=== PATIENT | female | born 1990 | race Caucasian/White ===

== ENCOUNTER 2019-05-13 23:14 | Observation (INO) | payer OTHER, SELFPAY ==
--- NOTE | ~2019-05-13 | XR_ITS ---
EXAMINATION: XR chest 2V DATE: 05/14/2019 00:29 INDICATION: Weakness. TECHNIQUE: Frontal and lateral views of the chest were obtained. COMPARISON: Chest 2 views 08/03/2018 FINDINGS: The chest demonstrates clear lungs without pneumonia, pleural effusion, or pneumothorax. Th e heart size is normal. Surgical clips in the right upper quadrant are likely from cholecystectomy. IMPRESSION: 1. No acute cardiopulmonary disease. Reviewed, dictated and finalized at location A. PING PROCESSOR
--- NOTE | ~2019-05-13 | CT_ITS ---
EXAMINATION: CT brain wo con DATE: 05/14/2019 00:29 INDICATION: Syncope. Head injury. TECHNIQUE: Computed tomography (CT) of the head was performed without intravenous contrast. The mA wa s adjusted according to patient size. Iterative reconstruction technique was employed. The dose-lengt h product was 605.33 mGy-cm. COMPARISON: Head CT 12/03/2016 FINDINGS: There is no intracranial hemorrhage, acute infarction, or abnormal intracranial mass lesion . The ventricles are normal in size. There is moderate mucosal thickening in left sphenoid sinus. The mastoid air cells are normal. The orbits are normal. IMPRESSION: 1. Normal brain. Reviewed, dictated and finalized at location A. NICAL ACCOUNT MANAGER IMPRESSION: 1. Normal brain.
[2019-05-13 23:15] VITALS: BP 80/46; PULSE 106; RESP 20; TEMP 36.8; O2SAT 100
--- NOTE | 2019-05-13 23:26 | ECG_ITS ---
Measurements Intervals [place] Rate: 80 P: 48 WA: 151 QRS: 51 QRSD: 97 T: 53 QT: 402 QTc: 466 Interpretive Statements SINUS RHYTHM NONSPECIFIC T-WAVE ABNORMALITY- LATERAL LEADS BASELINE ARTIFACT- I, III, AVR, AVL, AVF BORDERLINE ECG Electronically Signed On 05-14-2019 7:15:18 LEAD SUSTAINABILITY SPECIALIST by Navdeep Colmenares D.O.
[2019-05-13] MEDS: SODIUM CHLORIDE 0.9% IV 1,000 ML 999 ML (23:27)
[2019-05-13 23:38] VITALS: BP 72/50; PULSE 76; RESP 18
[2019-05-13 23:45] VITALS: PULSE 84
[2019-05-13 23:56] LABS: Basophils Absolute Auto 0.05 K/mm3 (0.00-0.10); Basophils Percent Auto 0.5 % (0.0-1.0); Eosinophils Absolute Auto 0.13 K/mm3 (0.02-0.50); Eosinophils Percent Auto 1.3 % (1.0-6.0); Hematocrit 34.8 % (35.0-49.0); Hemoglobin 12.3 g/dL (12.0-15.0); Immature Granulocyte Absolute 0.03 K/mm3 (0.00-0.00); Immature Granulocyte Percent A 0.3 % (0.0-0.0); Lymphocytes Absolute Auto 3.18 K/mm3 (1.10-4.50); Lymphocytes Percent Auto 30.9 % (18.0-42.0); Mean Corpuscular HGB Conc 35.3 g/dL (32.0-36.0); Mean Corpuscular Hemoglobin 33.7 pg (27.0-31.0); Mean Corpuscular Volume 95.3 fL (78.0-102.0); Mean Platelet Volume 9.3 fl (9.2-11.8); Monocytes Percent Auto 10.7 % (2.0-11.0); Neutrophils Absolute Auto 5.8 K/mm3 (1.7-7.2); Neutrophils Percent Auto 56.3 % (50.0-70.0); Platelet Count Result 255 K/mm3 (150-420); Red Blood Count 3.65 M/mm3 (4.20-5.40); Red Cell Distribution Width 11.7 % (11.6-14.4); White Blood Count 10.3 K/mm3 (4.8-10.8)
[2019-05-13] MEDS: SODIUM CHLORIDE 0.9% IV 1,000 ML 999 ML IV CONT (23:56)
[2019-05-14] VITALS: BP 84/40; PULSE 80; RESP 18; O2SAT 100
[2019-05-14 00:10] LABS: INR 1.1; Partial Thromboplastin Time 24.2 SEC (22.3-31.6); Prothrombin Time 11.7 Seconds (9.64-11.0)
[2019-05-14 00:13] LABS: Alanine Aminotransferase 18 U/L (14-59); Albumin Level 3.5 g/dL (3.4-5.0); Alkaline Phosphatase 69 U/L (46-116); Anion Gap 11.8 mmol/L (7-16); Aspartate Amino Transferase 14 U/L (15-37); Bilirubin,Total 0.4 mg/dL (0.00-1.00); Blood Urea Nitrogen 12 mg/dL (7-18); Calcium 8.4 mg/dL (8.5-10.1); Carbon Dioxide 31 mmol/L (21-32); Chloride 101 mmol/L (98-108); Estimated CRCL calculation 46 ml/min; Estimated Glomerular Filt Rate 35; Glucose 98 mg/dL (70-99); Osmolality Calculated 291 mOsm/kg (285-295); Potassium 2.8 mmol/L (3.5-5.1); Sodium 141 mmol/L (136-145)
[2019-05-14 00:14] LABS: CRP < 0.2 mg/dL (0.0-0.9)
[2019-05-14 00:16] LABS: Lactic Acid 1.7 mmol/L (0.4-2.0)
[2019-05-14] MEDS: KCL 40 MEQ/0.9% SOD CHL 1,000 ML 100 ML IV CONT (00:28)
[2019-05-14 00:31] VITALS: BP 94/52; PULSE 86; RESP 14; O2SAT 100
--- NOTE | 2019-05-14 00:34 | PC.NURSE ---
Patient sitting up in bed eating chips and drinking dark soda, water or other/better hydration options offered and declined with patient stating she only drinks soda. IVF bolus continue, NS w/ 40 kcl started @ 100 ml/hr for K 2.8. Patient reports feeling better. Will continue to monitor
--- NOTE | 2019-05-14 00:42 | ED.SYNCOPE ---
HPI - Syncope General Chief Complaint: Syncope Stated Complaint: Snycope Source: patient and family Mode of arrival: wheelchair Limitations: no limitations History of Present Illness HPI narrative: This 29-year-old female presents emergency the episode of syncope patient passed out earlier felt faint and and she fell she hit her head on the whole left occipital area, also was nausea with episodes of vomiting. Patient was recently diagnosed with influenza at her primary care physician's office and was prescribed Tamiflu and Zofran for nausea and vomiting. Patient apparently fainted and was out for unknown period of time with no bowel or bladder dysfunction no seizure activity no tongue biting. The patient has not been eating or drinking well and has been only drinking soft drinks. Currently there is no shortness of breath no fever chills no chest pain no diarrhea constipation. Patient initially presented with a blood pressure systolic in the 80s, and feels fine when she is just lying flat. MD complaint: loss of consciousness and felt faint Onset (ago): hour(s) -: second(s) Prodromal symptoms: nausea/vomiting Witnessed: Yes - by Bystander Context: at rest and recent illness Injuries sustained associated with event: head and chest Current symptoms: lightheaded and nausea Related Data Home Medications Medication Instructions Recorded Confirmed amitriptyline 50 mg PO HS 04/10/19 05/13/19 lisinopril 10 mg PO DAILY 04/10/19 05/13/19 trazodone 50 mg PO HS PRN 04/10/19 05/13/19 venlafaxine [Effexor XR] 37.5 mg PO DAILY 04/10/19 05/13/19 Allergies Allergy/AdvReac Type Severity Reaction Status Date / Time No Known Allergies Allergy Unverified 03/07/17 06:25 Review of Systems Review of Systems: All systems reviewed & are unremarkable except as noted in HPI and below PMFSH Past Medical History Medical History (Updated 05/14/19 @ 00:51 by Reji Higgins MD) Depression HTN (hypertension) Patient denies medical problems Social History Social History Smoking status: Current every day smoker Alcohol intake: current Exam Const: General: no acute distress and alert Orientation/consciousness: patient oriented x3 HENMT: Head: normal to inspection and hematoma Other: scalp hematoma Eyes: Conjunctivae: conjunctivae normal Pupils: Equal, round and reactive pupils present EOM: EOMs intact bilaterally Neck: Neck: normal visual inspection and no lymphadenopathy Chest: Chest palpation & inspection: normal inspection of the chest Resp: Effort & Inspection: normal respiratory effort Auscultation: clear to auscultation bilaterally Cardio: Rate: regular rate Rhythm: regular rhythm GI: Auscultation: normal bowel sounds : General: Yes no CVA tenderness Skin: General skin exam: normal color Neuro: General: patient oriented x3, moves all extremities and no meningeal signs Speech: normal speech Psych: Appearance: grossly normal Mental Status: mental status grossly normal Course Course Emergency Course: Re-evaluation of patient after to L fluid bolus is a systolic blood pressure 94, patient feels better although still dizzy when at a sitting position, currently there is no palpitations no chest pain new blood work showed potassium of 2.8. Patient was agreeable to inpatient observation. Vital Signs Vital signs: Vital Signs Temperature 36.8 C 05/13/19 23:15 Pulse Rate 106 H 05/13/19 23:15 Respiratory Rate 20 05/13/19 23:15 Blood Pressure 80/46 L 05/13/19 23:15 Pulse Oximetry 100 05/13/19 23:15 Temperature 36.8 C 05/13/19 23:15 Pulse Rate 86 05/14/19 00:31 Respiratory Rate 14 05/14/19 00:31 Blood Pressure 94/52 L 05/14/19 00:31 Pulse Oximetry 100 05/14/19 00:31 MDM - Syncope Lab Data Attestation: I reviewed the patient's lab results. Result diagrams: 05/13/19 23:50 05/13/19 23:50
[2019-05-14 00:52] VITALS: BP 95/46; PULSE 74; RESP 14; O2SAT 100
[2019-05-14 01:15] VITALS: BP 90/50; PULSE 78; RESP 18; TEMP 36.7; O2SAT 97
[2019-05-14 01:20] VITALS: BMI 32.8
--- NOTE | 2019-05-14 02:01 | ADMGEN ---
Addendum entered by Geena Abarca RN 05/14/19 02:03: time performed was 0110 Original Note: This patient, Gina Lyn, was admitted to 2nd Floor Room 204-2. Patient/family oriented to hospital policies and general routines including ID bracelet, bed and alarms, visiting hours, pain management, procedures, bathroom and other care routines, personal items, smoking policy, room service/diet, and visiting hours. Information on how to activate the Rapid Response Team has been discussed. Patient/Family are encouraged to report perceived risks to care and to ask questions if they do not understand what they are told or what they should do. Patient's cigarette pack and print developer placed in med room, patient agreed
[2019-05-14 02:03] LABS: Add Urine Microscopic? YES; Appearance Urine Sl Cloudy (Clear); Bilirubin Urine Negative (Negative); Blood Urine 2+ (Negative); Color Urine Yellow (Yellow); Glucose Urine UA Negative (Negative); Ketones Urine Trace (Negative); Leukocyte Esterase Ur Negative LEU/UL (Negative); Nitrate Urine Negative (Negative); Protein Urine Trace (Negative); Specific Grav Ur 1.015 (1.010-1.020); Urobilinogen Urine 0.2 mg/dL (0.2-1.0)
--- NOTE | 2019-05-14 02:04 | PC.NURSE ---
pt resting with eyes closed, no evidence of distress, iv fluids running per order, spouse sleeping in recliner
[2019-05-14 02:10] LABS: Bacteria Urine 2+ /hpf; Mucus Urine Moderate /lpf; Squamous Epithelial Cell Urine Moderate /hpf (Few); WBC Urine 0-3 /hpf (0-3)
[2019-05-14 03:11] VITALS: BP 89/45; PULSE 71; RESP 18; TEMP 36.4; O2SAT 100
--- NOTE | 2019-05-14 03:13 | PC.NURSE ---
pt resting in bed, vital signs obtained and blood pressure reading low, pt is not symptomatic and relief charge nurse made aware, pt denies any complaints and reports feeling fine
--- NOTE | 2019-05-14 04:18 | PC.NURSE ---
pt sleeping, respirations even and regular, no evidence of distress noted, iv fluids infusing per order
--- NOTE | 2019-05-14 05:10 | PC.NURSE ---
pt ambulated to bathroom, tolerated well, iv fluids infusing per order, pt reports feeling much better and denies any complaints
--- NOTE | 2019-05-14 06:09 | PC.NURSE ---
pt sleeping, no evidence of distress noted, iv infusing per order, spouse left to go to work at this time
[2019-05-14 08:00] VITALS: BP 107/67; PULSE 113; PULSE 80; RESP 16; TEMP 36.8; O2SAT 99
[2019-05-14 09:00] LABS: Basophils Absolute Auto 0.06 K/mm3 (0.00-0.10); Basophils Percent Auto 0.7 % (0.0-1.0); Eosinophils Absolute Auto 0.19 K/mm3 (0.02-0.50); Eosinophils Percent Auto 2.3 % (1.0-6.0); Hematocrit 36.9 % (35.0-49.0); Hemoglobin 12.8 g/dL (12.0-15.0); Immature Granulocyte Absolute 0.03 K/mm3 (0.00-0.00); Immature Granulocyte Percent A 0.4 % (0.0-0.0); Lymphocytes Absolute Auto 2.83 K/mm3 (1.10-4.50); Lymphocytes Percent Auto 33.9 % (18.0-42.0); Mean Corpuscular HGB Conc 34.7 g/dL (32.0-36.0); Mean Corpuscular Hemoglobin 33.4 pg (27.0-31.0); Mean Corpuscular Volume 96.3 fL (78.0-102.0); Mean Platelet Volume 9.6 fl (9.2-11.8); Monocytes Absolute Auto 0.84 K/mm3 (0.10-0.90); Monocytes Percent Auto 10.1 % (2.0-11.0); Neutrophils Absolute Auto 4.4 K/mm3 (1.7-7.2); Neutrophils Percent Auto 52.6 % (50.0-70.0); Platelet Count Result 253 K/mm3 (150-420); Red Blood Count 3.83 M/mm3 (4.20-5.40); Red Cell Distribution Width 11.7 % (11.6-14.4); White Blood Count 8.3 K/mm3 (4.8-10.8)
[2019-05-14 09:19] LABS: Alanine Aminotransferase 20 U/L (14-59); Albumin Level 3.5 g/dL (3.4-5.0); Alkaline Phosphatase 70 U/L (46-116); Anion Gap 14.2 mmol/L (7-16); Aspartate Amino Transferase 13 U/L (15-37); Bilirubin,Total 0.3 mg/dL (0.00-1.00); Blood Urea Nitrogen 11 mg/dL (7-18); Calcium 8.5 mg/dL (8.5-10.1); Carbon Dioxide 29 mmol/L (21-32); Chloride 104 mmol/L (98-108); Estimated CRCL calculation 65 ml/min; Estimated Glomerular Filt Rate 53; Glucose 89 mg/dL (70-99); Magnesium 1.8 mg/dL (1.8-2.4); Osmolality Calculated 296 mOsm/kg (285-295); Potassium 3.2 mmol/L (3.5-5.1); Sodium 144 mmol/L (136-145); Total Protein 7.1 g/dL (6.4-8.2)
[2019-05-14] MEDS: OSELTAMIVIR PHOSPHATE 75 MG CAP PO (09:49)
[2019-05-14] MEDS: POTASSIUM CHLORIDE 20 MEQ TABLET 40 MEQ PO (11:03)
--- NOTE | 2019-05-14 12:23 | PM.SD ---
Same Day Admit/Disch: HPI History of Present Illness Chief complaint: Snycope <KIKE Massey - Last Filed: 05/14/19 12:46> Narrative: Gina Lyn is a 29 year old female that presented to the ED today complaining of a syncopal episode that occurred yesterday. SHe has a past medical history of depression, and hypertension. According to patient she was recently diagnosed influenza a,she was not given any Tamiflu . she has been feeling as if she had to faint with nausea and vomiting. She also noted that her appetite had decreased and she was unable to hold anything down. She did hit her head when she had her syncopal episode. she has been displaying symptoms for about 1 week now. Her current vital signs are 107/ 67, 99% on room air, 36.8, 80, 16. she was admitted for syncope episode secondary to dehydration and orthostatic hypertension, influenza a, hypertension, and hypokalemia. While she was in ER she did receive a K rider potassium was at 2.8 she also received additional potassium while on the floor. Her CT of her head was negative chest x-ray was negative EKG was sinus. Her blood pressure while in ER was in 80s over 40s. Patient will discharge today her potassium currently is 3.2 she was given additional supplement. She will discharge with 10 days of potassium supplements also a repeat potassium will be collected in 1 week and she will follow-up with her PCP. Her nausea has resolved at this time Patient able to tolerate all meals , slept well and ambulate at baseline. Patient denies SOB, CP, palpitation, extremity numbness, lightheadness, dizziness, constipation, diarrhea, or chills or fever. Patient agree that they are ready for discharge and discharge plan. <KIKE Massey - Last Filed: 05/14/19 12:46> [facility] Social History Social History: Social History Years smoked: 7 Smoking status: Current every day smoker Tobacco type: cigarettes Second hand tobacco smoke exposure: Yes Alcohol intake: never Substance use: never Gender identity (if verbalized by the patient): Female Spiritual care concerns: No Agree to blood products: Yes <KIKE Massey - Last Filed: 05/14/19 12:46> Same Day Admit/Disch: Med Pre-admit Medications Home Medications: Home Medications Medication Instructions Recorded Confirmed Type amitriptyline 50 mg PO HS 04/10/19 05/13/19 History lisinopril 10 mg PO DAILY 04/10/19 05/13/19 History trazodone 50 mg PO HS PRN 04/10/19 05/13/19 History venlafaxine [Effexor XR] 37.5 mg PO DAILY 04/10/19 05/13/19 History ondansetron HCl [Zofran] 4 mg PO Q8H PRN #14 tablet 05/14/19 Rx oseltamivir [Tamiflu] 75 mg PO Q12HR 7 Days #14 cap 05/14/19 Rx potassium chloride 10 meq PO DAILY #10 tablet 05/14/19 Rx <KIKE Massey - Last Filed: 05/14/19 12:46> Exam Narrative: Exam Narrative: General: A well-developed, well-nourished male sitting up in bed no acute distress. HEENT: Normocephalic, atraumatic. PERRL, EOMI. Sclerae anicteric. Oral mucosa moist. Oropharynx clear. Neck: Supple. Respiratory: Lungs are clear to auscultation bilaterally. Cardiovascular: Regular rate and rhythm with S1-S2. Gastrointestinal: Abdomen is soft, nontender, and nondistended with positive bowel sounds. No organomegaly. Skin: Warm, dry, and slightly pale.. No rash or lesions on limited exam. Extremities: No cyanosis, clubbing, or edema. Radial and pedal pulses intact. Neurological: Alert. Cranial nerves 2-12 are grossly intact. No gross focal deficits to casual conversation. Psychiatric: Pleasant and cooperative with normal mood and affect. Judgment and insight intact. <KIKE Massey - Last Filed: 05/14/19 12:46> DS: Data Data Completed and Pending Labs on day of discharge: Labs from last 24 hours 05/14/19 05/14/19 05/14/19 08:34 08:34 01:49 WBC 8.3 RBC 3.
--- NOTE | 2019-05-19 14:22 | PC.NURSE ---
Discharge Call Back [phone] number is not a working number, no other number in patients chart.
== END 2019-05-14 13:10 | disposition home or self-care (01) ==
LOC: CHSED 05-14 00:51 → CHS2ND 05-14 01:02
PROVIDERS: Admitting Provider Emergency Medicine; Emergency Provider Emergency Medicine; PCP Internal Medicine; Visit Provider Emergency Medicine
DX: E86.0 Dehydration (principal); I95.1 Orthostatic hypotension; I10 Essential (primary) hypertension; E87.6 Hypokalemia; J11.1 Influenza due to unidentified influenza virus with other respiratory manifestations; F17.210 Nicotine dependence, cigarettes, uncomplicated
CPT/HCPCS: 36415; 70450; 71046; 80053; 81001; 83605; 83735; 85025; 85610; 85730; 86140; 87040; 93005; 96360; 96365; 96366; 99285; A9270; G0378; G0379; J7030

== ENCOUNTER 2019-05-21 12:14 | Outpatient (CLI) | payer OTHER, SELFPAY ==
[2019-05-21 12:33] LABS: Basophils Absolute Auto 0.03 K/mm3 (0.00-0.10); Basophils Percent Auto 0.5 % (0.0-1.0); Eosinophils Absolute Auto 0.52 K/mm3 (0.02-0.50); Eosinophils Percent Auto 8.6 % (1.0-6.0); Hematocrit 38.2 % (35.0-49.0); Hemoglobin 13.6 g/dL (12.0-15.0); Immature Granulocyte Absolute 0.02 K/mm3 (0.00-0.00); Immature Granulocyte Percent A 0.3 % (0.0-0.0); Lymphocytes Absolute Auto 2.13 K/mm3 (1.10-4.50); Lymphocytes Percent Auto 35.1 % (18.0-42.0); Mean Corpuscular HGB Conc 35.6 g/dL (32.0-36.0); Mean Corpuscular Hemoglobin 33.5 pg (27.0-31.0); Mean Corpuscular Volume 94.1 fL (78.0-102.0); Mean Platelet Volume 9.9 fl (9.2-11.8); Monocytes Absolute Auto 0.53 K/mm3 (0.10-0.90); Monocytes Percent Auto 8.7 % (2.0-11.0); Neutrophils Absolute Auto 2.8 K/mm3 (1.7-7.2); Neutrophils Percent Auto 46.8 % (50.0-70.0); Platelet Count Result 267 K/mm3 (150-420); Red Blood Count 4.06 M/mm3 (4.20-5.40); Red Cell Distribution Width 11.6 % (11.6-14.4); White Blood Count 6.1 K/mm3 (4.8-10.8)
[2019-05-21 13:14] LABS: Alanine Aminotransferase 39 U/L (14-59); Albumin Level 3.9 g/dL (3.4-5.0); Alkaline Phosphatase 83 U/L (46-116); Anion Gap 8.9 mmol/L (7-16); Aspartate Amino Transferase 35 U/L (15-37); Bilirubin,Total 0.2 mg/dL (0.00-1.00); Blood Urea Nitrogen 18 mg/dL (7-18); CRP 0.6 mg/dL (0.0-0.9); Calcium 9.5 mg/dL (8.5-10.1); Carbon Dioxide 32 mmol/L (21-32); Chloride 100 mmol/L (98-108); Estimated Glomerular Filt Rate 45; Free T3 3.99 pg/mL (2.18-3.98); Free T4 Free Thyroxine 1.17 ng/dL (0.76-1.46); Glucose 92 mg/dL (70-99); Magnesium 1.9 mg/dL (1.8-2.4); Osmolality Calculated 285 mOsm/kg (285-295); Potassium 3.9 mmol/L (3.5-5.1); Sodium 137 mmol/L (136-145); Total Protein 7.4 g/dL (6.4-8.2)
[2019-05-21 13:36] LABS: Erythrocyte Sedimentation Rate 20 mm/hr (0-15)
[2019-05-27 07:26] LABS: ANCA Screen Negative (Negative); Myeloperoxidase Ab <1.0 AI (<1.0); Proteinase-3 Ab <1.0 AI (<1.0); S cerevisiae Ab (IgA) 8.5 U (<=20.0); S cerevisiae Ab (IgG) 12.1 U (<=20.0)
[2019-05-30 07:56] LABS: Gliadin AB, IgG 3 Units (<20); Reticulin IgA Negative (Negative); TTG IGA AB 1 U/mL (<4)
== END 2019-05-21 12:15 | disposition home or self-care (01) ==
PROVIDERS: PCP Internal Medicine; Visit Provider Internal Medicine
DX: R19.7 Diarrhea, unspecified (principal); E86.0 Dehydration; E03.9 Hypothyroidism, unspecified
CPT/HCPCS: 36415; 80053; 83516; 83735; 84439; 84443; 84481; 85025; 85652; 86021; 86140; 86255; 86671

== ENCOUNTER 2019-05-25 10:36 | Outpatient (CLI) | payer OTHER, SELFPAY ==
[2019-05-28 17:04] LABS: Rotavirus Stool Not Detected
[2019-06-03 02:33] LABS: Calprotectin, Stool 98.9 mcg/g
== END 2019-05-25 10:37 | disposition home or self-care (01) ==
LOC: CHSLAB 10:38
PROVIDERS: PCP Internal Medicine; Visit Provider Internal Medicine
DX: R19.7 Diarrhea, unspecified (principal); E86.0 Dehydration; E03.9 Hypothyroidism, unspecified
CPT/HCPCS: 83993; 87045; 87046; 87177; 87209; 87324; 87425; 87427

== ENCOUNTER 2019-05-26 13:33 | Outpatient (CLI) | payer OTHER, SELFPAY ==
--- NOTE | ~2019-05-26 | US_ITS ---
EXAMINATION: US thyroid DATE: 05/26/2019 14:05 INDICATION: Hyperthyroidism. TECHNIQUE: Multiple ultrasound images of the thyroid were obtained. COMPARISON: None. FINDINGS: The right thyroid lobe measures 4.6 x 1.3 x 1.6 cm. The left thyroid lobe measures 4.4 x 1.1 x 1.6 c m. There is normal echotexture and echogenicity throughout the thyroid gland. No discrete nodules id entified. Normal vascular flow is present. IMPRESSION: 1. Normal thyroid. Reviewed, dictated and finalized at location A. IMPRESSION: 1. Normal thyroid.
== END 2019-05-26 13:34 | disposition home or self-care (01) ==
LOC: CHSIMG 13:34
PROVIDERS: PCP Internal Medicine; Visit Provider Internal Medicine
DX: E05.90 Thyrotoxicosis, unspecified without thyrotoxic crisis or storm (principal)
CPT/HCPCS: 76536

== ENCOUNTER 2019-09-08 12:25 | Outpatient (CLI) | payer OTHER, SELFPAY ==
[2019-09-08 13:07] LABS: Beta HCG Quantitative < 1.00 mIU/mL (0-6)
== END 2019-09-08 12:26 | disposition home or self-care (01) ==
LOC: CHSLAB 12:28
PROVIDERS: PCP Internal Medicine; Visit Provider Obstetrics & Gynecology
DX: O20.0 Threatened abortion (principal)
CPT/HCPCS: 36415; 84702

== ENCOUNTER 2019-12-02 00:05 | Observation (INO) | payer OTHER, SELFPAY ==
[2019-12-02] VITALS (10 sets, daily range): BP systolic 75–132; BP diastolic 32–96; PULSE 80–108; RESP 14–22; TEMP 36.4–36.6; O2SAT 95–100; BMI 37.0
--- NOTE | ~2019-12-02 | XR_ITS ---
EXAMINATION: XR chest 1V portable EXAM DATE: 12/02/2019 00:39 INDICATION: Unresponsive. TECHNIQUE: Portable AP frontal chest x-ray was obtained. Comparison is made to prior examination from 05/14/2019. FINDINGS: The lungs are clear. There are no pleural effusions. The cardiomediastinal silhouette is within normal limits. There is no pneumothorax suspected. The bones and soft tissues are unremarkab le. IMPRESSION: Normal chest x-ray exam. Reviewed, dictated and finalized at location A. IMPRESSION: Normal chest x-ray exam.
[2019-12-02] MEDS: NALOXONE HCL INJ 2 MG/2 ML AMP IV PUSH ×2 (00:05→00:07)
--- NOTE | 2019-12-02 00:31 | ECG_ITS ---
Measurements Intervals [place] Rate: 106 P: 57 VA: 153 QRS: 66 QRSD: 90 T: 52 QT: 345 QTc: 460 Interpretive Statements SINUS TACHYCARDIA BASELINE ARTIFACT- I, II, III, AVL, AVF, V4-V6 ABNORMAL ECG Electronically Signed On 12-02-2019 7:40:14 CDT by Navdeep Colmenares D.O.
[2019-12-02] MEDS: SODIUM CHLORIDE 0.9% IV 1,000 ML 999 ML IV CONT ×3 (00:37→06:54)
--- NOTE | 2019-12-02 00:49 | PC.NURSE ---
Pt. is now A&O x3 p Narcan given and answers questions appropriately. Continuing to monitor pt as awaiting for lab results.
--- NOTE | 2019-12-02 00:51 | ED.OVERDOSE ---
HPI - Overdose General Chief Complaint: Overdose Stated Complaint: found unresponcive Source: patient Mode of arrival: EMS Limitations: no limitations History of Present Illness HPI Narrative: Gina is a 29F with a PMH of a mood disorder, migraines, and hypertension that was brought in by EMS for being unresponsive. She was found unresponsive by her mother and was reportedly not breathing. Her mother started CPR. When EMS arrived she had shallow rapid respirations and was cyanotic and completely unresponsive. She was loaded and brought into the ED. Initially her vital were 123/72, pulse of 89 and was satting in the high 90's with a rebreather. She was switched to BVM. MD complaint: accidental overdose Related Data Home Medications Medication Instructions Recorded Confirmed amitriptyline 50 mg PO HS 04/10/19 12/02/19 lisinopril 10 mg PO DAILY 04/10/19 12/02/19 trazodone 50 mg PO HS PRN 04/10/19 12/02/19 venlafaxine [Effexor XR] 37.5 mg PO DAILY 04/10/19 12/02/19 divalproex 250 mg PO BID 12/02/19 12/02/19 propranolol 60 mg PO DAILY 12/02/19 12/02/19 rizatriptan 10 mg PO PRN 12/02/19 12/02/19 tizanidine 4 mg PO PRN 12/02/19 12/02/19 Allergies Allergy/AdvReac Type Severity Reaction Status Date / Time No Known Allergies Allergy Unverified 03/07/17 06:25 Review of Systems Review of Systems: ROS unobtainable: Yes unobtainable due to medical condition [facility] Past Medical History Medical History Depression HTN (hypertension) Patient denies medical problems Family History Family History Other Cerebrovascular accident Diabetes mellitus Family history of allergic disorder Hypertension Social History Social History Years smoked: 7 Smoking status: Current every day smoker Tobacco type: cigarettes Second hand tobacco smoke exposure: Yes Alcohol intake: never Substance use: never Gender identity (if verbalized by the patient): Female Spiritual care concerns: No Agree to blood products: Yes Exam Const: Other: Was originally lying on the backboard unresponsive to command, pupils were fixed and dilated, and she had no response to pain. HENMT: Other: Normocephalic, atraumatic. She had what appeared to be dried blood in her nose and mouth. Eyes: Other: pinpoint pupils bilaterally that had no response to light/dark Neck: Neck: normal visual inspection Chest: Chest palpation & inspection: normal inspection of the chest Resp: Auscultation: clear to auscultation bilaterally Other: Upon presentation to the ED she was breathing on her own but shallow, however she was holding her sats Cardio: Rate: tachycardic Heart sounds: no murmurs GI: Inspection: distended GI Palp: Yes Soft to palpation Skin: General skin exam: normal color Rashes: no rashes Neuro: Other: GCS of 3 Extrem: General: normal to inspection Psych: Other: urnesponsive Course Course Emergency Course: Gina was evaluated. As she was unresponsive with pinpoint pupils she was given narcan while preparing for intubation. Shortly afterthe she grunted and started to sap architect her arm and eye lids. She was then given another dose and started to wake up. Within a few minutes she returned to a GCS of 15. She reported that she took an unknown pill from someone she didn't know from [place]. A CXR, labs, UA and urine pregnacy test were ordered. CXR showed no acute process. Labs showed a leukocytosis of 15.2, likely a stress response, normal coags, test was negative, chemistries were largely unremarkable, and chemistries were unremarkable. UDS is pending at this time. She was given 2 L of fluid as she appeared dehydrated. She was admitted for observation to make sure she did not have any deteriorating mental status Vital Signs Vital signs: Vital Signs Te
[2019-12-02 01:01] LABS: Basophils Absolute Auto 0.06 K/mm3 (0.00-0.10); Basophils Percent Auto 0.4 % (0.0-1.0); Eosinophils Absolute Auto 0.33 K/mm3 (0.02-0.50); Eosinophils Percent Auto 2.2 % (1.0-6.0); Hemoglobin 12.4 g/dL (12.0-15.0); Immature Granulocyte Absolute 0.24 K/mm3 (0.00-0.00); Immature Granulocyte Percent A 1.6 % (0.0-0.0); Lymphocytes Absolute Auto 1.95 K/mm3 (1.10-4.50); Lymphocytes Percent Auto 12.8 % (18.0-42.0); Mean Corpuscular HGB Conc 33.5 g/dL (32.0-36.0); Mean Corpuscular Hemoglobin 33.9 pg (27.0-31.0); Mean Corpuscular Volume 101.1 fL (78.0-102.0); Mean Platelet Volume 9.2 fl (9.2-11.8); Monocytes Absolute Auto 0.91 K/mm3 (0.10-0.90); Neutrophils Absolute Auto 11.7 K/mm3 (1.7-7.2); Platelet Count Result 234 K/mm3 (150-420); Red Blood Count 3.66 M/mm3 (4.20-5.40); Red Cell Distribution Width 11.1 % (11.6-14.4); White Blood Count 15.2 K/mm3 (4.8-10.8)
[2019-12-02 01:05] LABS: Prothrombin Time 10.2 Seconds (9.64-11.0)
--- NOTE | 2019-12-02 01:05 | PC.NURSE ---
Pt. speaking about incident tonight c SPENCER, pt. states she was given some kind of pain pill tonight by an unknown male for her tooth pain but is unsure of name of drug she took. Pt. denies any SI and tearful about taking med she was given.
[2019-12-02 01:11] LABS: Lactic Acid Reflex 1.6 mmol/L (0.4-2.0)
[2019-12-02 01:20] LABS: Alanine Aminotransferase 32 U/L (14-59); Albumin Level 3.3 g/dL (3.4-5.0); Alkaline Phosphatase 83 U/L (46-116); Anion Gap 6 mmol/L (8-16); Aspartate Amino Transferase 31 U/L (15-37); Bilirubin,Total 0.1 mg/dL (0.00-1.00); Blood Urea Nitrogen 12 mg/dL (7-18); Calcium 7.8 mg/dL (8.5-10.1); Carbon Dioxide 28 mmol/L (21-32); Chloride 103 mmol/L (98-108); Creatine Kinase 73 U/L (26-192); Estimated CRCL calculation 78 ml/min; Estimated Glomerular Filt Rate > 60; Glucose 198 mg/dL (70-99); Magnesium 1.8 mg/dL (1.8-2.4); Osmolality Calculated 289 mOsm/kg (285-295); Phosphorus 4.2 mg/dL (2.6-4.7); Potassium 4.8 mmol/L (3.5-5.1); Salicylate 2.6 mg/dL (2.8-20.0); Sodium 137 mmol/L (136-145); Total Protein 6.9 g/dL (6.4-8.2)
[2019-12-02 01:24] LABS: Add Urine Microscopic? YES; Appearance Urine Clear (Clear); Bilirubin Urine Negative (Negative); Blood Urine 1+ (Negative); Color Urine Yellow (Yellow); Glucose Urine UA 2+ (Negative); Ketones Urine Negative (Negative); Leukocyte Esterase Ur Negative LEU/UL (Negative); Nitrate Urine Negative (Negative); Protein Urine Trace (Negative); Specific Grav Ur >= 1.030 (1.010-1.020); Urobilinogen Urine 0.2 mg/dL (0.2-1.0)
[2019-12-02 01:32] LABS: Ammonia < 10 umol/L (11-32)
[2019-12-02 01:33] LABS: Acetaminophen 0 ug/mL (10-30); Ethanol < 3 mg/dL (0-6); Phenytoin Dilantin < 1 ug/mL (10-20)
[2019-12-02 01:33] LABS: Squamous Epithelial Cell Urine Few /hpf (Few); WBC Urine 0-3 /hpf (0-3)
[2019-12-02 01:34] LABS: Bacteria Urine Trace /hpf; Pregnancy On Board Control Positive; Urine Pregnancy Test Negative
[2019-12-02 01:46] LABS: Amphetamine Screen Urine Negative (Negative); Barbiturate Screen Urine Negative (Negative); Benzodiazepines Screen Urine Negative (Negative); Cannabinoid Screen Urine Positive (Negative); Cocaine Screen Urine Negative (Negative); Methadone Screen Urine Negative (Negative); Opiate Screen Urine Negative (Negative); Phencyclidine Screen Urine Negative (Negative)
[2019-12-02] MEDS: KETOROLAC 15 MG/ML VIAL (*BKC) IV PUSH (01:48)
[2019-12-02] MEDS: ONDANSETRON INJ 4 MG/2 ML VIAL IV PUSH (01:48)
--- NOTE | 2019-12-02 02:42 | ADMGEN ---
This patient, Gina Lyn, was admitted to 2nd Floor Room 208-1. Patient/family oriented to hospital policies and general routines including ID bracelet, bed and alarms, visiting hours, pain management, procedures, bathroom and other care routines, personal items, smoking policy, room service/diet, and visiting hours. Valuables list has been completed. Information on how to activate the Rapid Response Team has been discussed. Patient/Family are encouraged to report perceived risks to care and to ask questions if they do not understand what they are told or what they should do.
--- NOTE | 2019-12-02 04:16 | PC.NURSE ---
Pt resting quietly in bed and remains alert and oriented x3.
--- NOTE | 2019-12-02 06:22 | PC.NURSE ---
Pt sitting up in bed and doesnt voice any c/o discomfort. Pt remains alert and oriented x3.
--- NOTE | 2019-12-02 06:37 | PC.NURSE ---
Dr. Lund notified of pt's low blood pressure; New orders received and noted.
--- NOTE | 2019-12-02 08:54 | PC.NURSE ---
Patient complaining of I/O site hurting when IVF infusing. attempted to start a peripheral line in left hand without success. Patient suggested she drink 1000ml of water to make up for the 1L fluid bolus infusing into the left leg IO. Spoke with Kp IQ[facility] about this. Will continue to monitor. Patient refusing IO usage at the moment. Encouraging PO fluid intake, will recheck VS after 1L water consumed PO.
--- NOTE | 2019-12-02 09:33 | PM.SD ---
Same Day Admit/Disch: HPI History of Present Illness Chief complaint: opiate overdose Narrative: Gina Lyn is a 29 year old female who came to the ER and was subsequently admitted for overdose of an unknown substance. Patient was found at home unresponsive and CPR was administered until EMS arrived and took over the scene and transported patient to the ER. Toxicology indicates positive for THC. Patient was given Narcan x2 in the ER and the patient then became responsive. Patient was having low blood pressures however large blood pressure cuff was being used. With the proper size blood pressure cuff on her pressures were normal. Patient has been able to get up in her room and walk to the restroom without getting dizzy lightheaded short of breath or changes in vision. Patient states that she had taken this unknown substance for dental pain of molars on the upper lower right side in the back and on the left side lower. I will be giving her an order for viscous lidocaine to be put on cotton ball and placed in her mouth that the area of pain. Patient is to follow-up with the dentist under primary care provider after discharge. [facility] Past Medical History Medical History Depression HTN (hypertension) Patient denies medical problems Family History Family History Grandparent Cerebrovascular accident Diabetes mellitus Mother Hypertension Other Family history of allergic disorder Social History Social History Years smoked: 7 Smoking status: Current every day smoker Tobacco type: cigarettes Second hand tobacco smoke exposure: Yes Alcohol intake: never Drinks per week: 0 Substance use: never Gender identity (if verbalized by the patient): Female Sexual Orientation (if Verbalized by the Patient): Straight or Heterosexual Spiritual care concerns: No Agree to blood products: Yes Same Day Admit/Disch: Med Pre-admit Medications Home Medications Medication Instructions Recorded Confirmed Type amitriptyline 50 mg PO HS 04/10/19 12/02/19 History lisinopril 10 mg PO DAILY 04/10/19 12/02/19 History trazodone 50 mg PO HS PRN 04/10/19 12/02/19 History venlafaxine [Effexor XR] 37.5 mg PO DAILY 04/10/19 12/02/19 History divalproex 250 mg PO BID 12/02/19 12/02/19 History propranolol 60 mg PO DAILY 12/02/19 12/02/19 History rizatriptan 10 mg PO PRN 12/02/19 12/02/19 History tizanidine 4 mg PO PRN 12/02/19 12/02/19 History Exam Const: General: cooperative, healthy appearing, no acute distress, alert, awake and Physically active Nutritional Appearance: obese Orientation/consciousness: oriented to person, oriented to place and oriented to time ( And events) HENMT: Teeth and gingiva: other ( dental pain as noted in the HPI) Resp: Effort & Inspection: normal respiratory effort Auscultation: clear to auscultation bilaterally Cardio: Jugular venous distension: no JVD Rate: regular rate Rhythm: regular rhythm Heart sounds: S1 normal heart sound present and S2 normal heart sound present Extrem: Other: IO placement left lower leg. DS: Data Data Completed and Pending Labs on day of discharge: Labs from last 24 hours 12/02/19 12/02/19 12/02/19 01:19 01:19 01:19 WBC RBC Hgb Hct MCV MCH MCHC RDW Plt Count MPV Immature Gran % (Auto) Neut % (Auto) Lymph % (Auto) [place] % (Auto) Eos % (Auto) Baso % (Auto) Lymph # (Auto) [place] # (Auto) Eos # (Auto) Baso # (Auto) Abs Immat Gran (auto) Absolute Neuts (auto) Absolute Nucleated RBC Nucleated RBC % PT INR Sodium Potassium Chloride Carbon Dioxide Anion Gap BUN Creatinine Estim Creat Clear Calc Estimated GFR Glucose Calculated Osmolality Lactic Acid Calcium Dianna
--- NOTE | 2019-12-03 10:34 | PC.NURSE ---
NS 1000 ml bolus stopped at 0730
--- NOTE | 2019-12-03 13:30 | PC.NURSE ---
Discharge call back unable to reach patient Patient returned to the ER this morning and transferred to [facility] ICU
[2019-12-06 18:32] LABS: Valproic Acid 20.9 mg/L (50.0-100.0)
== END 2019-12-02 11:45 | disposition home or self-care (01) ==
LOC: CHSED 01:54 → CHS2ND 07:10
PROVIDERS: Admitting Provider Family Medicine; Emergency Provider Family Medicine; PCP Internal Medicine; Visit Provider Family Medicine
DX: T40.601A Poisoning by unspecified narcotics, accidental (unintentional), initial encounter (principal); E86.0 Dehydration; I10 Essential (primary) hypertension; F32.9 Major depressive disorder, single episode, unspecified; F39 Unspecified mood [affective] disorder; F17.210 Nicotine dependence, cigarettes, uncomplicated
CPT/HCPCS: 36415; 71045; 80053; 80164; 80185; 80307; 81001; 81025; 82140; 82550; 83605; 83735; 84100; 85025; 85610; 93005; 96361; 96374; 96375; 99285; G0378; G0379; J1885; J2310; J2405; J7030

== ENCOUNTER 2019-12-03 04:03 | Emergency (ER) | payer OTHER, SELFPAY ==
[2019-12-03] VITALS (8 sets, daily range): BP systolic 118–133; BP diastolic 68–79; PULSE 107–128; RESP 20–42; TEMP 36.3–36.6; O2SAT 92–95
--- NOTE | ~2019-12-03 | XR_ITS ---
EXAMINATION: XR chest 1V portable EXAM DATE: 12/03/2019 05:36 INDICATION: Dyspnea. TECHNIQUE: Portable AP frontal chest x-ray was obtained. Comparison is made to prior examination from 12/02/2019. FINDINGS: Interval development of moderate amount of bilateral perihilar acute airspace disease georges red to yesterday, differential diagnosis including pneumonia, aspiration pneumonia, edema. Cardiomedi astinal silhouette is normal. There is no pneumothorax suspected. There are no pleural effusions. The re are no osseous abnormalities identified. IMPRESSION: Developing moderate acute bilateral perihilar pneumonia, aspiration pneumonia or edema. Reviewed, dictated and finalized at location A. IMPRESSION: Developing moderate acute bilateral perihilar pneumonia, aspiratio n pneumonia or edema.
[2019-12-03] MEDS: NALOXONE HCL INJ 2 MG/2 ML AMP IV PUSH (04:35)
--- NOTE | 2019-12-03 04:35 | ED.OVERDOSE ---
HPI - Overdose General Chief Complaint: Overdose Stated Complaint: overdose Source: patient Mode of arrival: EMS Limitations: altered mental status History of Present Illness HPI Narrative: this is a 29-year-old female that was discharged home after she was admitted on 12/01 for apparent drug overdose. At that time of admission the patient stated that she had dental pain and took some medication from someone known to her to help with her dental pain. This morning the patient was some found in her bathtub unresponsive by her mother and EMS was called. At this time she had taken dose of fentanyl that she got from someone in [facility]. EMS gave her intranasal Narcan and she did respond, currently she is moaning but more alert. There is no coughing no shortness of breath no chest pain no abdominal pain no dysuria no fever chills. Called [facility] access line and hospitalist has not contacted our facility and it has been 1hour since we called [place] [facility] line. complaint: intentional overdose Onset (ago): hour(s) Timing confirmed by: family member Intent: unknown How Overdose Was Discovered: family/friend present at time Related Data Home Medications Medication Instructions Recorded Confirmed lisinopril 10 mg PO DAILY 04/10/19 12/03/19 trazodone 50 mg PO HS PRN 04/10/19 12/03/19 venlafaxine [Effexor XR] 37.5 mg PO DAILY 04/10/19 12/03/19 divalproex 250 mg PO BID 12/02/19 12/03/19 rizatriptan 10 mg PO PRN 12/02/19 12/03/19 tizanidine 4 mg PO PRN 12/02/19 12/03/19 amitriptyline 75 mg PO HS 12/03/19 12/03/19 Allergies Allergy/AdvReac Type Severity Reaction Status Date / Time No Known Allergies Allergy Unverified 03/07/17 06:25 Review of Systems Review of Systems: All systems reviewed & are unremarkable except as noted in HPI and below PMFSH Past Medical History Medical History Depression HTN (hypertension) Patient denies medical problems Family History Family History Grandparent Cerebrovascular accident Diabetes mellitus Mother Hypertension Other Family history of allergic disorder Social History Social History Years smoked: 7 Smoking status: Current every day smoker Tobacco type: cigarettes Second hand tobacco smoke exposure: Yes Alcohol intake: never Drinks per week: 0 Substance use: never Gender identity (if verbalized by the patient): Female Spiritual care concerns: No Agree to blood products: Yes Exam Const: General: confusion Nutritional Appearance: obese Limitations: altered mental status HENMT: Head: normal to inspection Eyes: Conjunctivae: conjunctivae normal Pupils: Equal, round and reactive pupils present Neck: Neck: normal visual inspection, no lymphadenopathy and no meningeal signs Chest: Chest palpation & inspection: normal inspection of the chest Resp: Effort & Inspection: normal respiratory effort Auscultation: clear to auscultation bilaterally Cardio: Rate: regular rate Rhythm: regular rhythm GI: GI Palp: Yes Soft to palpation Auscultation: normal bowel sounds Urinary Catheter: Urinary Catheter: patent and draining Back/Spine/Pelvis: Back: no CVA tenderness Skin: General skin exam: normal color Rashes: no rashes Neuro: Speech: normal speech Extrem: General: normal to inspection and no pedal edema Course Course Emergency Course: Patient more alert received another 2 mg IV of Narcan and IV fluids have been started patient is moaning but denies any pain and is more alert. After 2nd eval re-evaluation of patient the patient has become more tachypnea and obtained a chest x-ray which showed fluffy patches of as possible edema or infiltrate compared to her chest x-ray that was performed yesterday. The patient is satting at about 92 % on a non-rebreather
[2019-12-03] MEDS: SODIUM CHLORIDE 0.9% IV 1,000 ML 999 ML IV CONT ×2 (04:47→06:21)
[2019-12-03 04:49] LABS: Basophils Absolute Auto 0.05 K/mm3 (0.00-0.10); Basophils Percent Auto 0.3 % (0.0-1.0); Eosinophils Absolute Auto 0.26 K/mm3 (0.02-0.50); Eosinophils Percent Auto 1.7 % (1.0-6.0); Hematocrit 35.1 % (35.0-49.0); Hemoglobin 11.9 g/dL (12.0-15.0); Immature Granulocyte Absolute 0.08 K/mm3 (0.00-0.00); Immature Granulocyte Percent A 0.5 % (0.0-0.0); Lymphocytes Absolute Auto 1.41 K/mm3 (1.10-4.50); Lymphocytes Percent Auto 9.1 % (18.0-42.0); Mean Corpuscular HGB Conc 33.9 g/dL (32.0-36.0); Mean Corpuscular Hemoglobin 34.6 pg (27.0-31.0); Monocytes Absolute Auto 0.82 K/mm3 (0.10-0.90); Monocytes Percent Auto 5.3 % (2.0-11.0); Neutrophils Absolute Auto 12.8 K/mm3 (1.7-7.2); Neutrophils Percent Auto 83.1 % (50.0-70.0); Platelet Count Result 245 K/mm3 (150-420); Red Blood Count 3.44 M/mm3 (4.20-5.40); Red Cell Distribution Width 11.2 % (11.6-14.4); White Blood Count 15.4 K/mm3 (4.8-10.8)
[2019-12-03 04:52] LABS: Add Urine Microscopic? YES; Appearance Urine Sl Cloudy (Clear); Bilirubin Urine Negative (Negative); Blood Urine 3+ (Negative); Color Urine Amber (Yellow); Glucose Urine UA 2+ (Negative); Ketones Urine Negative (Negative); Leukocyte Esterase Ur Negative (Negative); Nitrate Urine Negative (Negative); Protein Urine Trace (Negative); Specific Grav Ur 1.025 (1.010-1.020); Urobilinogen Urine 0.2 mg/dL (0.2-1.0)
[2019-12-03 04:59] LABS: Amphetamine Screen Urine Negative (Negative); Barbiturate Screen Urine Negative (Negative); Benzodiazepines Screen Urine Negative (Negative); Cannabinoid Screen Urine Positive (Negative); Cocaine Screen Urine Negative (Negative); Methadone Screen Urine Negative (Negative); Opiate Screen Urine Negative (Negative); Phencyclidine Screen Urine Negative (Negative)
[2019-12-03 05:03] LABS: Bacteria Urine Trace /hpf; RBC Urine >75 /hpf (0-2); Squamous Epithelial Cell Urine Occasional /hpf (Few); WBC Urine 0-3 /hpf (0-3)
[2019-12-03 05:08] LABS: Alanine Aminotransferase 65 U/L (14-59); Albumin Level 3.3 g/dL (3.4-5.0); Alkaline Phosphatase 106 U/L (46-116); Anion Gap 4 mmol/L (8-16); Aspartate Amino Transferase 62 U/L (15-37); Bilirubin,Total 0.3 mg/dL (0.00-1.00); Blood Urea Nitrogen 10 mg/dL (7-18); Calcium 8.1 mg/dL (8.5-10.1); Carbon Dioxide 30 mmol/L (21-32); Chloride 102 mmol/L (98-108); Creatine Kinase 88 U/L (26-192); Estimated CRCL calculation 73 ml/min; Estimated Glomerular Filt Rate > 60; Glucose 85 mg/dL (70-99); Magnesium 1.7 mg/dL (1.8-2.4); Osmolality Calculated 280 mOsm/kg (285-295); Potassium 3.8 mmol/L (3.5-5.1); Sodium 136 mmol/L (136-145); Total Protein 6.9 g/dL (6.4-8.2)
[2019-12-03 05:09] LABS: Ethanol < 3 mg/dL (0-6)
--- NOTE | 2019-12-03 05:19 | ECG_ITS ---
Measurements Intervals [place] Rate: 108 P: 65 IA: 155 QRS: 68 QRSD: 90 T: 49 QT: 344 QTc: 463 Interpretive Statements SINUS TACHYCARDIA BASELINE ARTIFACT- I, III, AVR, AVL, V4-V6 ABNORMAL ECG Electronically Signed On 12-03-2019 7:07:37 CDT by Navdeep Colmenares D.O.
--- NOTE | 2019-12-03 05:21 | PC.NURSE ---
Pt. awake at times, moaning and noted desat in 80's, pt. placed on nonreb mask and noted increased Spo2 sat to 92% on mask. Pt. continues to have jumbled and garrbled speech but can be reawakened and reoriented when asked questions. ERP reevaluated pt. and spoke to pts. mom, will continue to monitor and further tests ordered.
[2019-12-03 05:44] LABS: Base Excess ABG -0.7 mmol/L (0-2); HCO3 ABG 25.9 mmol/L (23-29); Oxygen Content ABG 15.3 %vol (16.0-22.0); Oxygen Saturation ABG 91.2 % (95-97); Oxyhemoglobin 87.9 % (94-100); PCO2 ABG 51.1 mmHg (35-45); PO2 ABG 62.5 mmHg (80-90); Total Hemoglobin 12.4 g/dL; pH ABG 7.32 (7.35-7.45)
[2019-12-03 05:46] LABS: Device AMBU BAG; Modified Allen's Test Pass; Site Drawn LEFT RADIAL
--- NOTE | 2019-12-03 05:52 | PC.NURSE ---
Pt. reevaluated by ERP, pt. remains very tachypneic c RR of 30 and mumbling and groaning when stimulated. Eyes dilated at this time and pt. will respond to verbal stimuli and then go back to garbled speech c grunting resp. Call placed to Loretta at [facility] p decision made to transfer to ICU bed. Mom states transfer to [place] if able. Awaiting call back from Dr. Boswell
[2019-12-03 06:11] LABS: Lactic Acid Reflex 0.9 mmol/L (0.4-2.0)
[2019-12-03] MEDS: IPRATROPIUM 0.5 MG/ALBUTEROL SULFATE 2.5 MG AMPUL.NEB 3 ML INHALATION (06:27)
[2019-12-03] MEDS: CLINDAMYCIN 600 MG/D5W 50 ML 600 MG/50 ML PIGGYBACK 100 MG IVPB (06:48)
--- NOTE | 2019-12-03 06:51 | PC.NURSE ---
1 hr passed, call back to house [facility]. still awaiting call back from for transfer.
--- NOTE | 2019-12-03 07:21 | PC.NURSE ---
Call back from [facility] DR. Campbell, orders recieved.
--- NOTE | 2019-12-03 07:23 | WPDPN ---
Progress Note: A&P Assessment and Plan (1) Opiate overdose: Onset Date: ~12/03/19 Code(s): T40.601A - Poisoning by unspecified narcotics, accidental (unintentional), initial encounter Status: Acute Assessment and Plan: S/P Narcan x 2 doses. Awake and alert at present. Will consider Narcan drip if she becomes altered again. D/W Dr Campbell (ICU) at [facility] who accepts transfer to ICU. (2) Aspiration pneumonitis: Onset Date: ~12/03/19 Code(s): J69.0 - Pneumonitis due to inhalation of food and vomit Status: Acute Assessment and Plan: S/P IV Rocephin and IV Clindamycin. Stable on NRB. She is awake and alert admits she is feeling better on NRB (3) ARDS (adult respiratory distress syndrome): Onset Date: ~12/03/19 Code(s): J80 - Acute respiratory distress syndrome Status: Acute Assessment and Plan: Improved on NRB. Pt awake and alert, no reason to Intubate at this time. She has been accepted to ICU at [facility]. Time Spent With Patient Time with patient: 15 - 25 minutes Exam Const: General: cooperative, comfortable, no acute distress and alert HENMT: Head: normal to inspection Chest: Chest palpation & inspection: normal inspection of the chest Resp: Effort & Inspection: normal respiratory effort, able to speak in complete sentences and abnormal respiratory pattern Auscultation: rhonchi throughout, no wheezes and diminished lung sounds (bases) bilateral Cardio: Jugular venous distension: no JVD Rate: regular rate Rhythm: regular rhythm Heart sounds: S1 normal heart sound present and S2 normal heart sound present GI: GI Palp: No abdominal tenderness, Yes Soft to palpation, No Tenderness to palpation present (GI), No Guarding due to palpation present (GI) and No Rigid due to palpation Auscultation: normal bowel sounds Rectal Exam: deferred Neuro: General: oriented to person, oriented to place, oriented to time and patient oriented x3 Objective Data Vital Signs Vital Signs: Vital Signs - 24 hr 12/03/19 04:05 12/03/19 04:15 12/03/19 06:26 Temperature 97.3 F L Pulse Rate 128 H 110 H Respiratory Rate 22 H 22 H 28 H Blood Pressure 126/75 131/79 Pulse Oximetry 92 93 12/03/19 06:30 12/03/19 06:37 Temperature Pulse Rate 117 H 111 H Respiratory Rate 36 H 42 H Blood Pressure Pulse Oximetry Intake/Output Intake/Output: Intake & Output 11/30/19 12/01/19 12/02/19 12/03/19 23:59 23:59 23:59 23:59 Intake Total 1100 Balance 1100 Meds/Results Medications: Active Medications Generic Name Dose Route Start Last Admin Trade Name Freq PRN Reason Stop Dose Admin Acetaminophen 650 mg 12/03/19 04:52 Tylenol Tablet PO Q4H PRN Mild Pain (1-3) or Fever Sodium Chloride 1,000 mls @ 100 mls/hr 12/03/19 04:55 Normal Saline Iv IV CONT .Q10H RANJAN Magnesium Hydroxide 30 ml 12/03/19 04:52 Milk Of Magnesia PO DAILY PRN Constipation Ondansetron HCl 4 mg 12/03/19 04:52 Zofran Inj IV PUSH Q6H PRN Nausea And Vomiting Radiology Results: ITS Impressions Chest X-Ray 12/03/19 06:26 IMPRESSION: Developing moderate acute bilateral perihilar pneumonia, aspiration pneumonia or edema. Labs Labs: Laboratory Results - last 24 hr 12/03/19 12/03/19 12/03/19 04:20 04:40 04:40 WBC 15.4 H RBC 3.44 L Hgb 11.9 L Hct 35.1 MCV 102.0 MCH 34.6 H MCHC 33.9 RDW 11.2 L Plt Count 245 MPV 9.0 L Immature Gran % (Auto) 0.5 H Neut % (Auto) 83.1 H Lymph % (Auto) 9.1 L [place] % (Auto) 5.3 Eos % (Auto) 1.7 Baso % (Auto) 0.3 Lymph # (Auto) 1.41 [place] # (Auto) 0.82 Eos # (Auto) 0.26 Baso # (Auto) 0.05 Abs Immat Gran (auto) 0.08 H Absolute Neuts (auto) 12.8 H Absolute Nucleated RBC 0.00 Nucleated RBC % 0.0 Puncture Site ABG pH ABG pCO2 ABG pO2 ABG PO2/FiO2 Ratio ABG HCO3 ABG O2 Sa
--- NOTE | 2019-12-03 07:40 | PCDIET ---
Pt. sleeping c mom at bedside. Mon. shows JESENIA John. Awaiting call back from Kristie for bed assignment and report.
--- NOTE | 2019-12-03 08:05 | PC.NURSE ---
Call back polaced to Yoan, antonino Florez. states awaiting acid operator Dr. Valentino to call us back. Mom and pt. informed of reason for wait.
--- NOTE | 2019-12-03 08:50 | PC.NURSE ---
Call paged for [facility] for transfer to [place].
[2019-12-03] MEDS: SODIUM CHLORIDE 0.9% IV 1,000 ML 100 ML IV CONT (08:56)
--- NOTE | 2019-12-03 09:07 | PC.NURSE ---
Report given to [facility] for transfer.
[2019-12-04 13:52] LABS: SARS-CoV-2 RNA PCR Negative
== END 2019-12-03 09:08 | disposition short-term general hospital (02) ==
PROVIDERS: Emergency Medicine; Emergency Provider Family Medicine; PCP Internal Medicine
DX: T40.601A Poisoning by unspecified narcotics, accidental (unintentional), initial encounter (principal)
CPT/HCPCS: 36415; 36600; 71045; 80053; 80307; 81001; 82550; 82805; 83605; 83735; 85025; 87040; 87635; 93005; 94640; 96361; 96365; 96367; 96375; 99285; C9803; J0696; J2310; J7030; U0003

== ENCOUNTER 2019-12-03 09:53 | Inpatient (IN) | payer OTHER, SELFPAY ==
[2019-12-03] VITALS (8 sets, daily range): BP systolic 129–150; BP diastolic 84–98; PULSE 96–107; RESP 13–30; TEMP 37–37.2; O2SAT 89–95; BMI 36.6
--- NOTE | ~2019-12-03 | XR_ITS ---
XR chest 1V portable DATE: 12/04/2019 06:12 INDICATION: Hypoxia TECHNIQUE: Portable AP chest on 12/04/2019 at 0521 hours COMPARISON: 12/03/2019 portable AP chest at 0540 hours FINDINGS: There are prominent persistent bilateral pulmonary traits which are more prominent centrall y, suggesting pulmonary edema, but pneumonia is a consideration as well. Recommend clinical correlati on. No significant pleural effusion is evident. No pneumothorax is detected. Heart size appears normal. IMPRESSION: Prominent persistent bilateral pulmonary infiltrates, more prominent centrally; diffusion diagnosis includes pulmonary edema and pneumonia Reviewed, dictated and finalized at location A. IMPRESSION: Prominent persistent bilateral pulmonary infiltrates, more prominen t centrally; diffusion diagnosis includes pulmonary edema and pneumonia
--- NOTE | ~2019-12-03 | XR_ITS ---
XR chest 2V 12/06/2019 10:46 Indication: Aspiration pneumonia. Procedure: 2 view chest Comparison: Comparison to multiple prior studies sequentially, with oldest reviewed study dated 05/14. Findings: Patchy bilateral airspace disease, compatible with pneumonia. No pleural effusion or pneumo thorax. No acute osseous abnormality. Impression: 1: Patchy bilateral airspace disease, compatible with pneumonia. Reviewed, dictated and finalized at location A. Impression: 1: Patchy bilateral airspace disease, compatible with pneumonia.
--- NOTE | 2019-12-03 10:44 | WPDCNINT ---
Assessment and Plan Assessment and plan (1) Aspiration pneumonitis: Onset Date: ~12/03/19 Code(s): J69.0 - Pneumonitis due to inhalation of food and vomit Status: Acute Assessment and Plan: currently saturating adequately on 5-6 L of nasal can. continue supplemental oxygen hemodynamically stable IV Zosyn blood culture sent and pending (2) Suspected COVID-19 virus infection: Code(s): Z20.828 - Contact with and (suspected) exposure to other viral communicable diseases Status: Acute Assessment and Plan: COVID-19 suspected. SARS-CoV-2 PCR sent and results pending Patient is in Airborne, Droplet and Contact Isolation (3) Opiate overdose: Onset Date: ~12/03/19 Code(s): T40.601A - Poisoning by unspecified narcotics, accidental (unintentional), initial encounter Status: Acute Assessment and Plan: patient now alert awake and oriented continue monitoring (4) Depression: Code(s): F32.9 - Major depressive disorder, single episode, unspecified Status: Acute Assessment and Plan: denies any suicidal ideation or attempts (5) Essential hypertension: Code(s): I10 - Essential (primary) hypertension Status: Acute Assessment and Plan: blood pressure and control range at this time. Hold lisinopril. Continue to monitor in ICU. Resume medication if blood pressure is elevated Additional Plan DVT prophylaxis - SCDs Nutrition - regular diet Code Status - Full Code Intelligence Intern Consult Note Consult date: 12/03/19 Time Seen: 10:30 HPI: Gina Lyn is a 29 year old female with past medical history of mood disorder, migraines, and hypertension transferred from [facility] with hypoxia and pneumonia. Patient was for seen in ED on 12/01 when she was brought by her mother as she was found unresponsive at home. She was given Narcan in ED and her mental status improved she told the physician that she had taken some pills for pain. other workup was negative except leukocytosis. Her chest x-ray was on unremarkable. she was given IV fluids observed discharge home. Patient was found in her bathtub by her mother unresponsive and taken back to ER. she was again given Narcan which led to improving in her mental status. Through her course in ED she required multiple doses of Narcan. X-ray showed diffuse bilateral infiltrate. Patient was hypoxic and was placed on non-rebreather mask and diagnosed with aspiration pneumonitis and transferred to [facility] ICU for further evaluation and management. she was tested for COVID PCR in the ED and is pending Once patient arrived she was weaned down to nasal cannula on 5 L. She denies any shortness of breath or cough at this point. She denies feeling sick prior to this. She denies any suicidal ideation or attempt. 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 She has 3 children. She is going through divorce but does not feel depressed or suicidal because of that. Patient otherwise denies any drug use in the past. She claims she has never used IV drugs. Review of system is positive for chronic migraine headaches, depression and anxiety, chronic neck pain and back from spasm., Chronic allergies no sick contact. No contact with anyone diagnosed with COVID-19. No change in sensation of taste or smell. Patient denies fever, chest pain, shortness of breath, cough, nausea, vomiting, abdominal pain, diarrhea, headache or constipation. Review of Systems Review of Systems: All systems reviewed & are unremarkable except as noted in HPI and below (HPI) [facility] Past Medical History Medical History ARDS (adult respiratory distress syndrome) (~12/03/19) Aspiration pneumonitis (~12/03/19) Depression HTN (hypertension) Patient denies medical problems Family History Family History (Reviewed 12/03/19 @ 10
--- NOTE | 2019-12-03 10:53 | ADMGEN ---
This patient, Gina Lyn, was admitted to Intensive Care Unit-6. Patient/family oriented to hospital policies and general routines including ID bracelet, bed and alarms, visiting hours, pain management, procedures, bathroom and other care routines, personal items, smoking policy, room service/diet, and visiting hours. Valuables list has been completed. Information on how to activate the Rapid Response Team has been discussed. Patient/Family are encouraged to report perceived risks to care and to ask questions if they do not understand what they are told or what they should do.
[2019-12-03 11:36] LABS: NT Pro B Type Natriuretic Pept 1700 PG/ML (5-100)
--- NOTE | 2019-12-03 11:57 | PM.IMHP ---
H&P: HPI History of Present Illness Date/Time: 12/03/19 11:57 Chief complaint: Overdose Narrative: Gina Lyn is a 29 year old female with depression and anxiety was transferred from an outside hospital after unintentional drug overdose as well as developing aspiration pneumonitis. Patient smokes marijuana on occasion but denies any history of drug use. She was initially brought in on the director of early childhood hours of December 01 after being found unresponsive. She was found by her mother who felt that the patient was not breathing. CPR was started. When EMS arrived, patient had shallow and rapid respirations. She was cyanotic and unresponsive. She is brought to the emergency room for evaluation at the outside hospital. She was given Narcan and started to arouse. She became oriented. The notes state that she took an unknown pill from someone she did not know. Chest x-ray was clear. test was negative. She was admitted for observation. Urine drug screen is positive for marijuana. Patient was up ambulating in the room. She had no symptoms. She was discharged home around noon on December 01. She mentions to me that she had taken hydrocodone on that day that is a home medication. She was told that this may have been compounded by her taking her other medicines. She was told to stop the propranolol and decrease the Elavil dose to 37.5 mg. Patient states that she returned home. Since being at home, she performed routine care of her children. Later that evening she states that she could not fall sleep. He is vague on details but states that she was given a dose of fentanyl that she took around 2:00 a.m.. The notes of the emergency room stated that she had dental pain although patient does not mention this to me at this time. Patient was found in the bathtub on the morning of admission by her mother and EMS was called. She was given intranasal Narcan and she became more responsive. She did havi IO placed that was removed. She did have an episode of nausea and vomiting. She is brought to the outside emergency room. She received a 2nd dose of Narcan. Chest x-ray showing bilateral airspace disease. She was hypoxic. She was started on IV antibiotics. She was tested for COVID. She was transferred to the ICU further care. She denies any fever or chills recently. She denies any shortness of breath or cough. No chest pain or palpitations. No recent nausea or vomiting. She feels hungry currently. No dysuria or hematuria. No numbness, tingling or weakness of her arms or legs. She does have daily chronic headaches and was on the propranolol as well as Elavil for this. She denies feeling sad or blue. No suicidal or homicidal ideation. Review of Systems Review of Systems: All systems reviewed & are unremarkable except as noted in HPI and below PMFSH Past Medical History Medical History (Updated 12/04/19 @ 09:53 by Javier Campbell MD) ARDS (adult respiratory distress syndrome) (~12/03/19) Aspiration pneumonitis (~12/03/19) Depression 4 Para 2 with 3 children (twins) and 2 miscarriages HTN (hypertension) Surgical History Surgical History (Updated 12/03/19 @ 12:29 by Colby Faye MD) Hx of section Hx of cholecystectomy Hx of tonsillectomy Hx of wisdom tooth extraction Family History Family History Grandparent Cerebrovascular accident Diabetes mellitus Mother Hypertension Other Family history of allergic disorder Social History Social History (Updated 12/03/19 @ 12:30 by Colby Faye MD) Social History: Patient admits to smoking marijuana. Drug use as mentioned above although denies any prior history drug use. She smokes half a pack a day the past 5-6 years. Rarely drinks alcohol. She lives at home with her mother, father and 3 children. She is a full code. Her father is the individual would make medical decisions f
[2019-12-03] MEDS: DIVALPROEX SODIUM 250 MG TABEC PO ×2 (14:10→20:31)
[2019-12-03] MEDS: ENOXAPARIN 40 MG/0.4 ML SYRINGE SUB-Q (14:10)
[2019-12-03] MEDS: lisinopriL 10 MG TABLET PO (14:10)
[2019-12-03] MEDS: HYDROcodone/acetaminophen (*CRX) 5-325 MG TABLET 1 TAB PO ×2 (17:22→21:12)
[2019-12-03 17:55] LABS: Add Urine Microscopic? YES; Appearance Urine Clear (Clear); Bilirubin Urine Negative (Negative); Blood Urine 1+ (Negative); Color Urine Yellow (Yellow); Glucose Urine UA Negative (Negative); Ketones Urine Negative (Negative); Leukocyte Esterase Ur Negative LEU/UL (Negative); Mucus Urine Rare /lpf; Nitrate Urine Negative (Negative); Protein Urine Negative (Negative); RBC Urine 21-50 /hpf (0-2); Urobilinogen Urine Negative mg/dL (<2.0); WBC Urine 0-3 /hpf
[2019-12-03] MEDS: AMITRIPTYLINE HCL 25 MG TABLET 75 MG PO (20:30)
[2019-12-03] MEDS: traZODone HCL 50 MG TABLET PO (21:11)
[2019-12-04] VITALS (15 sets, daily range): BP systolic 132–144; BP diastolic 84–103; PULSE 101–147; RESP 20–32; TEMP 37.1–37.3; O2SAT 92–97
--- NOTE | 2019-12-04 | ECHO_ITS ---
Patient Info Name: Gina Lyn Age: 29 years : 1990 Gender: Female Ht: 64 in Wt: 201 lbs BSA: 2.07 m2 HR: 111 bpm BP: 139 / 88 mmHg Heart Rhythm: Tachycardia Technical Quality: Good Exam Date: 12/04/2019 8:10 AM Exam Location: [facility] Card Pulmonary Patient Status: Inpatient Admit Date: 12/03/2019 Staff Ordering Physician: Javier Campbell MD [employer]aving Machine Operator: Samia Tsai RDCS Attending Provider: Colby Faye MD Exam Type: CA echo doppler color flow Summary 1. Left ventricular systolic function is normal, estimated at 65-70%. 2. There is no increased left ventricular wall thickness. 3. The left ventricular diastolic function is normal. 4. There is no aortic valve stenosis. 5. There is trace mitral valve regurgitation. 6. There is trace tricuspid valve regurgitation. 7. No pulmonary hypertension, estimated pulmonary arterial systolic pressure is 19 mmHg. Left Ventricle Left ventricular chamber dimension is normal. Left ventricular systolic function is normal, estimated at 65-70%. There is no increased left ventricular wall thickness. The left ventricular diastolic function is normal. Right Ventricle Right ventricular chamber dimension is normal. Right ventricular systolic function is normal. Prominent moderator band, normal variant. Left Atria Left atrial chamber dimension is normal. Right Atria Right atrial chamber dimension is normal. Aortic Valve The aortic valve is trileaflet. There is no aortic valve stenosis. There is no aortic valve regurgitation. Pulmonic Valve The pulmonic valve is not well visualized. Mitral Valve The mitral valve has normal leaflets. There is trace mitral valve regurgitation. Tricuspid Valve The tricuspid valve leaflets are normal. There is trace tricuspid valve regurgitation. No pulmonary hypertension, estimated pulmonary arterial systolic pressure is 19 mmHg. Pericardium/Pleural The pericardium appears normal. There is trivial pericardial effusion. Inferior Vena Cava Normal inferior vena cava with >50% collapse upon inspiration consistent with normal right atrial pressure, 5 mmHg. Aorta The aortic root size at the sinus of Valsalva is normal. Left Ventricular Outflow Tract Name Value Normal LVOT 2D LVOT Diameter 2.2 cm LVOT Doppler LVOT Peak Gradient 6 mmHg LVOT Mean Gradient 3 mmHg LVOT VTI 20 cm LVOT VTI/AV VTI Ratio 0.9 LVOT Stroke Volume 75 ml LVOT CO 8.4 l/min LVOT CI 4.1 l/min/m2 Pulmonic Valve Name Value Normal PV Doppler PV Peak Gradient 6 mmHg Mitral Valve Name
[2019-12-04] MEDS: HYDROcodone/acetaminophen (*CRX) 5-325 MG TABLET 1 TAB PO ×5 (01:10→23:15)
[2019-12-04 06:12] LABS: Hematocrit 33.8 % (37.0-47.0); Hemoglobin 11.8 g/dL (12.0-15.0); Mean Corpuscular HGB Conc 34.9 g/dl (32-36); Mean Corpuscular Hemoglobin 34.2 pg (26-34); Mean Platelet Volume 9.2 fl (7.4-10.4); Platelet Count Result 178 k/mm3 (150-375); Red Blood Count 3.45 M/mm3 (4.2-5.4); White Blood Count 11.5 K/mm3 (4.5-10.0)
[2019-12-04 06:26] LABS: Alanine Aminotransferase 44 U/L (4-35); Albumin Level 3.5 g/dL (3.5-5.1); Alkaline Phosphatase 106 U/L (38-126); Anion Gap 4 mmol/L (8-16); Aspartate Amino Transferase 36 U/L (14-36); Bilirubin,Total 1.2 mg/dL (0.2-1.3); Blood Urea Nitrogen 4 mg/dL (7-17); Calcium 8.7 mg/dL (8.4-10.2); Carbon Dioxide 29 mmol/L (22-30); Chloride 101 mmol/L (98-107); Estimated CRCL calculation 112 ml/min; Estimated Glomerular Filt Rate > 60; Glucose 116 mg/dL (65-105); Magnesium 1.7 mg/dL (1.6-2.3); Potassium 3.7 mmol/L (3.4-5.0); Sodium 134 mmol/L (137-145)
[2019-12-04] MEDS: FUROSEMIDE INJ 40 MG/4 ML VIAL IV PUSH (07:48)
[2019-12-04] MEDS: POTASSIUM CHLORIDE 20 MEQ PACKET (FOR LIQUID) 40 MEQ PO (07:48)
[2019-12-04] MEDS: MAGNESIUM SULF 2 GM/WATER 50ML 2 GM/50 ML BAG IVPB (07:48)
[2019-12-04] MEDS: DIVALPROEX SODIUM 250 MG TABEC PO ×2 (07:49→20:10)
[2019-12-04] MEDS: lisinopriL 10 MG TABLET PO (07:49)
[2019-12-04] MEDS: ENOXAPARIN 40 MG/0.4 ML SYRINGE SUB-Q (07:50)
--- NOTE | 2019-12-04 09:50 | WPDINTPN ---
Progress Note: A&P Assessment and Plan (1) Aspiration pneumonitis: Onset Date: ~12/03/19 Code(s): J69.0 - Pneumonitis due to inhalation of food and vomit Status: Acute Assessment and Plan: currently saturating adequately on 4 L nasal cannula. continue supplemental oxygen and wean hemodynamically stable IV Zosyn blood culture sent and pending (2) Pulmonary edema: Code(s): J81.1 - Chronic pulmonary edema Status: Acute Assessment and Plan: patient received significant amount of IV fluid bolus on her 1st presentation to ED and a chest x-ray on 2nd presentation showed diffuse bilateral infiltrate her BNP was 1700 this raises the possibility of pulmonary edema although she does not have any history of heart failure I will check and echocardiogram since patient is now hypertensive I will give a dose of Lasix (3) Suspected COVID-19 virus infection: Code(s): Z20.828 - Contact with and (suspected) exposure to other viral communicable diseases Status: Acute Assessment and Plan: COVID-19 suspected. SARS-CoV-2 PCR sent and results pending Patient is in Airborne, Droplet and Contact Isolation (4) Opiate overdose: Onset Date: ~12/03/19 Code(s): T40.601A - Poisoning by unspecified narcotics, accidental (unintentional), initial encounter Status: Acute Assessment and Plan: patient now alert awake and oriented continue monitoring (5) Depression: Code(s): F32.9 - Major depressive disorder, single episode, unspecified Status: Acute Assessment and Plan: denies any suicidal ideation or attempts on home meds (6) Essential hypertension: Code(s): I10 - Essential (primary) hypertension Status: Acute Assessment and Plan: patient is on lisinopril. Continue to monitor in ICU. Resume medication if blood pressure is elevated Additional Plan DVT prophylaxis - patient is currently on Lovenox Nutrition - regular diet Code Status - Full Code will transfer patient out of ICU today once we have the COVID PCR result back Subjective Date/time seen: 12/04/19 0740 patient feels better this morning as compared to yesterday and her breathing is better. She now has a cough when it is associated with brownish sputum. She denies any fever overnight. she is on 4 L nasal cannula Review of system was positive for headache which is chronic and is 4/10 this morning. She claims that these are her uncontrolled migraine and told me that she has migraine 5 days out of week average and takes hydrocodone for and no other medication worked for her. Patient denies fever, chest pain, shortness of breath, nausea vomiting, abdominal pain,, diarrhea, headache or constipation. Review of Systems Review of Systems: All systems reviewed & are unremarkable except as noted in HPI and below (HPI) Exam Narrative: Exam Narrative: General: Pt is alert awake and in NAD Lungs/Chest: Trachea central Clear BS B/L, No wheezing. bibasilar crackles are present in posterior Cardiac: RRR. Normal S1 S2. No murmurs Circulation: Pedal pulses are intact and symmetrical. Abdomen: Normal bowel sounds. obese. Soft. NT. ND. Extremities: No clubbing, cyanosis or edema. Warm : Sidhu in place Neurologic: Follows commands. Moves all 4 extremities PERRL Skin: No Rash Psych: normal mood and affect ENT: Dental caries Objective Data Vital Signs Vital Signs: Vital Signs - 24 hr 12/03/19 10:00 12/03/19 12:00 12/03/19 14:00 Temperature 37.1 C Pulse Rate 96 100 101 H Respiratory Rate 23 H 13 19 Blood Pressure 129/95 H 131/84 129/93 H Pulse Oximetry 93 89 L 92 12/03/19 16:00 12/03/19 18:00 12/03/19 20:00 Temperature 37.0 C Pulse Rate 97 103 H 104 H Respiratory Rate 30 H 19 Blood Pressure 133/93 H 150/98 H Pulse Oximetry 93 92 12/03/19 20:35 12/03/19 22:00 12/04/19 00:00 Temperature 37.2 C Pulse Rate 101
--- NOTE | 2019-12-04 14:21 | PM.IMPN ---
Progress Note: A&P Assessment and Plan (1) ARDS (adult respiratory distress syndrome): Onset Date: ~12/03/19 Code(s): J80 - Acute respiratory distress syndrome Status: Acute Assessment and Plan: Chest x-ray on admission showing mostly bilateral perihilar fluffy infiltrates. Repeat CXR showing similar findings. Consider pulmonary edema if patient was severely hypotensive in the field. Consider also aspiration pneumonitis. Echo essentially normal. WBC better. Lasix IV given once this morning with good UOP. BCx 12/02 NGTD. COVID negative. Continue Antibiotics. Supplemental oxygen which will wean as tolerated. Continue supportive care. (2) Aspiration pneumonitis: Onset Date: ~12/03/19 Code(s): J69.0 - Pneumonitis due to inhalation of food and vomit Status: Acute Assessment and Plan: As above. Related to her episode of nausea and vomiting after her unintentional overdose. (3) Opiate overdose: Onset Date: ~12/03/19 Code(s): T40.601A - Poisoning by unspecified narcotics, accidental (unintentional), initial encounter Status: Acute Assessment and Plan: Patient states that she had an unintentional overdose on December 01 with hydrocodone. She is only home for a short period time when she has again overdose this time with fentanyl. Presumably she has no drug history. No evidence that these are suicidal attempts. She has been educated about the benefits abstain from drug use. Care coordination to follow to provide information as necessary for support services. (4) Suspected COVID-19 virus infection: Code(s): Z20.828 - Contact with and (suspected) exposure to other viral communicable diseases Status: Acute Assessment and Plan: Patient has been tested for COVID and results are Negative. Okay to stop isolation. (5) Essential hypertension: Code(s): I10 - Essential (primary) hypertension Status: Acute Assessment and Plan: Patient's blood pressure was reviewed on 12/03 Blood pressure remains well controlled. Continue lisinopril. Continue to follow. (6) Depression: Code(s): F32.9 - Major depressive disorder, single episode, unspecified Status: Acute Assessment and Plan: Mood is stable. Continue Depakote, Elavil and Effexor. (7) DVT prophylaxis: Code(s): Z29.9 - Encounter for prophylactic measures, unspecified Status: Acute Assessment and Plan: Lovenox Subjective Date/time seen: 12/04/19 14:21 Interval history: Date of service 12/03 29yo female here for unintentional drug overdose and respiratory failure. No issues overnight. Feels much better. Eating okay. No n/v. No CP or SOB. Voiding well since removal of Chiang. Up to bedside commode. Requesting discharge Exam Narrative: Exam Narrative: AF 132/90 120 24 95% 4L Gen - NARD Chest - distant BS with decreased breath sounds in the bases CV - tachycardic, regular; Tele showing sinus tachycardia Abd - soft, obese, NT, +BS Ext - no pedal edema Psych - normal mood and affect. Patient is pleasant and cooperative. Skin - warm and dry. Objective Data Vital Signs Vital Signs: Vital Signs - 24 hr 12/03/19 16:00 12/03/19 18:00 12/03/19 20:00 Temperature 98.6 F Pulse Rate 97 103 H 104 H Respiratory Rate 30 H 19 Blood Pressure 133/93 H 150/98 H Pulse Oximetry 93 92 12/03/19 20:35 12/03/19 22:00 12/04/19 00:00 Temperature 98.9 F Pulse Rate 101 H 106 H 110 H Respiratory Rate 25 H 27 H 22 H Blood Pressure 150/93 H 144/95 H 134/95 H Pulse Oximetry 95 90 94 12/04/19 02:00 12/04/19 04:00 12/04/19 06:00 Temperature 98.7 F 99.1 F Pulse Rate 106 H 101 H 116 H Respiratory Rate 25 H 25 H 32 H Blood Pressure 135/91 H 139/84 139/88 Pulse Oximetry 97 95 96 12/04/19 08:00 12/04/19 10:00 12/04/19 10:09 Temperature Pulse Rate 122 H 125 H Respiratory Rate 20 22 H
[2019-12-04 14:38] LABS: Anion Gap 5 mmol/L (8-16); Blood Urea Nitrogen 5 mg/dL (7-17); Calcium 8.8 mg/dL (8.4-10.2); Carbon Dioxide 31 mmol/L (22-30); Chloride 97 mmol/L (98-107); Estimated CRCL calculation 112 ml/min; Estimated Glomerular Filt Rate > 60; Glucose 127 mg/dL (65-105); Magnesium 2.1 mg/dL (1.6-2.3); Potassium 3.7 mmol/L (3.4-5.0); Sodium 133 mmol/L (137-145)
[2019-12-04] MEDS: POTASSIUM CHLORIDE 20 MEQ TABLET PO (14:57)
--- NOTE | 2019-12-04 18:20 | PC.NURSE ---
This patient, Gina Lyn, was received from ICU 6 on 12/04/19 at 1820. Personal belongings list checked and signed. Patient/family oriented to unit policies and routines
--- NOTE | 2019-12-04 18:31 | PC.NURSE ---
Patient transferred to room 333, report given to Wilton RICHARD, all belongings sent with patient
[2019-12-04] MEDS: AMITRIPTYLINE HCL 25 MG TABLET 75 MG PO (20:10)
[2019-12-04] MEDS: traZODone HCL 50 MG TABLET PO (23:15)
[2019-12-05] VITALS (7 sets, daily range): BP systolic 95–133; BP diastolic 69–90; PULSE 110–136; RESP 18–20; TEMP 35.8–36.9; O2SAT 92–97
[2019-12-05 06:07] LABS: Hematocrit 39.1 % (37.0-47.0); Hemoglobin 13.9 g/dL (12.0-15.0); Mean Corpuscular HGB Conc 35.5 g/dl (32-36); Mean Corpuscular Hemoglobin 34.9 pg (26-34); Mean Corpuscular Volume 98.2 fl (80-100); Mean Platelet Volume 9.5 fl (7.4-10.4); Platelet Count Result 258 k/mm3 (150-375); Red Blood Count 3.98 M/mm3 (4.2-5.4); Red Cell Distribution Width 11.1 % (11.5-14.5); White Blood Count 18.7 K/mm3 (4.5-10.0)
[2019-12-05 06:42] LABS: Alanine Aminotransferase 29 U/L (4-35); Albumin Level 3.6 g/dL (3.5-5.1); Alkaline Phosphatase 137 U/L (38-126); Anion Gap 4 mmol/L (8-16); Aspartate Amino Transferase 19 U/L (14-36); Blood Urea Nitrogen 8 mg/dL (7-17); Calcium 9.4 mg/dL (8.4-10.2); Carbon Dioxide 32 mmol/L (22-30); Chloride 98 mmol/L (98-107); Estimated CRCL calculation 99 ml/min; Estimated Glomerular Filt Rate > 60; Glucose 114 mg/dL (65-105); Potassium 4.2 mmol/L (3.4-5.0); Sodium 134 mmol/L (137-145)
[2019-12-05] MEDS: HYDROcodone/acetaminophen (*CRX) 5-325 MG TABLET 1 TAB PO ×3 (09:16→21:10)
[2019-12-05] MEDS: lisinopriL 10 MG TABLET PO (09:17)
[2019-12-05] MEDS: ENOXAPARIN 40 MG/0.4 ML SYRINGE SUB-Q (09:17)
[2019-12-05] MEDS: DIVALPROEX SODIUM 250 MG TABEC PO ×2 (09:17→21:11)
--- NOTE | 2019-12-05 11:37 | PM.IMPN ---
Progress Note: A&P Assessment and Plan (1) ARDS (adult respiratory distress syndrome): Onset Date: ~12/03/19 Code(s): J80 - Acute respiratory distress syndrome Status: Acute Assessment and Plan: Chest x-ray on admission showing mostly bilateral perihilar fluffy infiltrates. Consider pulmonary edema if patient was severely hypotensive in the field. Consider also aspiration pneumonitis. Echo essentially normal. WBC higher today for unclear reasons. No fevers and BCx NGTD. Lasix IV was given once 12/03 with excessive UOP of almost 7L. BCx 12/02 NGTD. COVID negative. Weaned to room air. Continue antibiotics. Repeat CXR in the morning. If WBC trends down and HR improves, plan discharge tomorrow. Continue supportive care. (2) Aspiration pneumonitis: Onset Date: ~12/03/19 Code(s): J69.0 - Pneumonitis due to inhalation of food and vomit Status: Acute Assessment and Plan: As above. Related to her episode of nausea and vomiting after her unintentional overdose. (3) Sinus tachycardia: Code(s): R00.0 - Tachycardia, unspecified Status: Acute Assessment and Plan: Resting HR up to 130 evenovernight. Suspect related to minor withdrawal symptoms. Will have Ativan available as needed. Echo normal. Doubt PE. Monitor for now. Check TSH. (4) Opiate overdose: Onset Date: ~12/03/19 Code(s): T40.601A - Poisoning by unspecified narcotics, accidental (unintentional), initial encounter Status: Acute Assessment and Plan: Patient states that she had an unintentional overdose on December 01 with hydrocodone. She is only home for a short period time when she has again overdose this time with fentanyl. Patient admits to being adicted on narcotics but quir for many months until resuming Fentanyl about 1 week ago. If she returned to her current dose, this could explain the back to back overdose. She has been educated about the benefits abstain from drug use. Care coordination to follow to provide information as necessary for support services. Will need to go home with Narcan. (5) Suspected COVID-19 virus infection: Code(s): Z20.828 - Contact with and (suspected) exposure to other viral communicable diseases Status: Acute Assessment and Plan: Patient has been tested for COVID and results are Negative. Okay to stop isolation. (6) Essential hypertension: Code(s): I10 - Essential (primary) hypertension Status: Acute Assessment and Plan: Patient's blood pressure was reviewed on 12/04 Blood pressure remains well controlled. Continue lisinopril. Continue to follow. (7) Depression: Code(s): F32.9 - Major depressive disorder, single episode, unspecified Status: Acute Assessment and Plan: Mood is stable. Continue Depakote, Elavil and Effexor. She states she takes Effexor XR 225mg daily. This was verified with her pharmacist so will advance this dose. (8) DVT prophylaxis: Code(s): Z29.9 - Encounter for prophylactic measures, unspecified Status: Acute Assessment and Plan: Lovenox Subjective Date/time seen: 12/05/19 11:37 Interval history: Date of service 12/04 29yo female here for unintentional drug overdose and respiratory failure. No issues overnight. Slept for 5hours overnight. No fever, diaphoresis, nausea or vomiting. Eating okay. No CP or palpitations. No SOB or CORDOVA. Slight pleuritic CP (but had CPR recently). She does admit to using Fentanyl 3x/day for the past 7 days at least. had been off drugs for a few months prior to resuming 1 week ago. Exam Narrative: Exam Narrative: AF 98.3 123/74 134 18 92% ra Gen - NARD sitting up in bed Chest - distatn BS, few basilar rhonchi, nml RR CV - tachycardic, regular; Tele showing sinus tachycardia Abd - soft, NT/ND, +BS Ext - no pedal edema; Negartive [facility] Psych - normal mo
[2019-12-05] MEDS: VENLAFAXINE HCL XR 75 MG CAP.ER.24H 150 MG PO (12:48)
[2019-12-05] MEDS: LORazepam (*CRX) 0.5 MG TABLET PO ×2 (12:55→21:10)
[2019-12-05] MEDS: AMITRIPTYLINE HCL 25 MG TABLET 75 MG PO (21:11)
[2019-12-05] MEDS: traZODone HCL 50 MG TABLET PO (21:12)
[2019-12-06] VITALS (12 sets, daily range): BP systolic 102–133; BP diastolic 64–80; PULSE 108–133; RESP 16–22; TEMP 36–37.2; O2SAT 91–98
[2019-12-06 05:57] LABS: Hematocrit 37.3 % (37.0-47.0); Hemoglobin 13.3 g/dL (12.0-15.0); Mean Corpuscular HGB Conc 35.7 g/dl (32-36); Mean Corpuscular Volume 95.4 fl (80-100); Mean Platelet Volume 9.3 fl (7.4-10.4); Platelet Count Result 271 k/mm3 (150-375); Red Blood Count 3.91 M/mm3 (4.2-5.4); White Blood Count 14.6 K/mm3 (4.5-10.0)
[2019-12-06 06:08] LABS: Alanine Aminotransferase 24 U/L (4-35); Albumin Level 3.5 g/dL (3.5-5.1); Alkaline Phosphatase 132 U/L (38-126); Anion Gap 6 mmol/L (8-16); Aspartate Amino Transferase 17 U/L (14-36); Bilirubin,Total 0.7 mg/dL (0.2-1.3); Blood Urea Nitrogen 12 mg/dL (7-17); Calcium 9.4 mg/dL (8.4-10.2); Carbon Dioxide 33 mmol/L (22-30); Chloride 96 mmol/L (98-107); Estimated CRCL calculation 99 ml/min; Estimated Glomerular Filt Rate > 60; Glucose 127 mg/dL (65-105); Potassium 3.4 mmol/L (3.4-5.0); Sodium 135 mmol/L (137-145)
[2019-12-06] MEDS: DIVALPROEX SODIUM 250 MG TABEC PO ×2 (12:58→20:37)
[2019-12-06] MEDS: ENOXAPARIN 40 MG/0.4 ML SYRINGE SUB-Q (12:58)
[2019-12-06] MEDS: lisinopriL 10 MG TABLET PO (12:59)
[2019-12-06] MEDS: VENLAFAXINE HCL XR 75 MG CAP.ER.24H 225 MG PO (12:59)
[2019-12-06] MEDS: HYDROcodone/acetaminophen (*CRX) 5-325 MG TABLET 1 TAB PO ×2 (14:11→20:38)
[2019-12-06] MEDS: LORazepam (*CRX) 0.5 MG TABLET PO ×2 (14:11→20:38)
[2019-12-06] MEDS: FUROSEMIDE INJ 40 MG/4 ML VIAL IV PUSH (16:25)
--- NOTE | 2019-12-06 16:29 | PM.IMPN ---
Progress Note: A&P Assessment and Plan (1) ARDS (adult respiratory distress syndrome): Onset Date: ~12/03/19 Code(s): J80 - Acute respiratory distress syndrome Status: Acute Assessment and Plan: -----Chest x-ray on admission showing mostly bilateral perihilar fluffy infiltrates. Repeat CXR showing similar findings. She is coughing up sputum so I am going to order a sputum culture. She also has not received albuterol so we will do that as well. Consider pulmonary edema--will give 1 dose of Lasix. Consider also aspiration pneumonia, continue Zosyn. Echo essentially normal. WBC better but still elevated. BCx 12/02 NGTD. COVID negative. Continue Antibiotics. Patient is off oxygen PE less likely but if she does not improve, consider CTA since she is on control. She has no history of blood clots and I suspect her tachycardia is due to pneumonia and possible drug withdrawal. Her white blood cell count is improving and the patient is feeling some improvement with current treatment and producing sputum, less likely PE. (2) Aspiration pneumonitis: Onset Date: ~12/03/19 Code(s): J69.0 - Pneumonitis due to inhalation of food and vomit Status: Acute Assessment and Plan: -----As above. Related to her episode of nausea and vomiting after her unintentional overdose. I ordered a sputum culture as well as albuterol today (3) Opiate overdose: Onset Date: ~12/03/19 Code(s): T40.601A - Poisoning by unspecified narcotics, accidental (unintentional), initial encounter Status: Acute Assessment and Plan: -----Patient states that she had an unintentional overdose on December 01 with hydrocodone. She is only home for a short period time when she has again overdose this time with fentanyl. Presumably she has no drug history. No evidence that these are suicidal attempts. She has been educated about the benefits abstain from drug use. Care coordination to follow to provide information as necessary for support services. (4) Suspected COVID-19 virus infection: Code(s): Z20.828 - Contact with and (suspected) exposure to other viral communicable diseases Status: Acute Assessment and Plan: ----- Patient has been tested for COVID and results are Negative. Okay to stop isolation. (5) Essential hypertension: Code(s): I10 - Essential (primary) hypertension Status: Acute Assessment and Plan: -----last blood pressure 121/72 (6) Depression: Code(s): F32.9 - Major depressive disorder, single episode, unspecified Status: Acute Assessment and Plan: -----Mood is stable. Continue Depakote, Elavil and Effexor. (7) DVT prophylaxis: Code(s): Z29.9 - Encounter for prophylactic measures, unspecified Status: Acute Assessment and Plan: -----continue prophylaxis dose of Lovenox Time Spent With Patient Time with patient: 25 - 35 minutes Subjective Date/time seen: 12/06/19 16:30 Interval history: Pt is a 29-year-old female here for pneumonia likely aspiration after drug overdose. Patient was seen today and states she is feeling better although she is still coughing up phlegm. She has no shortness of breath at rest but has dyspnea on exertion with activities. She gets an occasional stabbing chest pain with cough but no chest pain other than that. She denies nausea, vomiting, fevers, chills, diarrhea or constipation. Her last bowel movement was today. She is on the NuvaRing, never had a blood clot. Review of Systems Review of Systems: All systems reviewed & are unremarkable except as noted in HPI and below Exam Narrative: Exam Narrative: General: Well developed well nourished patient resting comfortably in bed in no acute distress HEENT: normocephalic Neck: supple Neuro: Alert and oriented x4 CV: Tachycardic with no murmurs. Telemetry shows sinus tachycardia currently 118
[2019-12-06] MEDS: AMITRIPTYLINE HCL 25 MG TABLET 75 MG PO (20:37)
[2019-12-06] MEDS: ALBUTEROL SULFATE NEB 2.5 MG/0.5 ML INH 5 MG INHALATION (20:46)
[2019-12-07] VITALS (7 sets, daily range): BP systolic 106–129; BP diastolic 63–74; PULSE 100–131; RESP 16–20; TEMP 36.4–36.5; O2SAT 91–95
[2019-12-07 06:07] LABS: Hematocrit 36.4 % (37.0-47.0); Hemoglobin 12.7 g/dL (12.0-15.0); Mean Corpuscular HGB Conc 34.9 g/dl (32-36); Mean Corpuscular Volume 97.6 fl (80-100); Mean Platelet Volume 9.3 fl (7.4-10.4); Platelet Count Result 262 k/mm3 (150-375); Red Blood Count 3.73 M/mm3 (4.2-5.4); Red Cell Distribution Width 11.3 % (11.5-14.5); White Blood Count 8.3 K/mm3 (4.5-10.0)
[2019-12-07 06:36] LABS: Alanine Aminotransferase 21 U/L (4-35); Albumin Level 3.3 g/dL (3.5-5.1); Alkaline Phosphatase 111 U/L (38-126); Anion Gap 6 mmol/L (8-16); Aspartate Amino Transferase 20 U/L (14-36); Bilirubin,Total 0.5 mg/dL (0.2-1.3); Blood Urea Nitrogen 12 mg/dL (7-17); Calcium 8.8 mg/dL (8.4-10.2); Carbon Dioxide 34 mmol/L (22-30); Chloride 95 mmol/L (98-107); Estimated CRCL calculation 99 ml/min; Estimated Glomerular Filt Rate > 60; Glucose 113 mg/dL (65-105); Potassium 3.1 mmol/L (3.4-5.0); Sodium 135 mmol/L (137-145)
[2019-12-07 06:47] LABS: CRP 12.2 mg/dL (<1.0)
[2019-12-07] MEDS: ALBUTEROL SULFATE NEB 2.5 MG/0.5 ML INH 5 MG INHALATION (08:25)
[2019-12-07] MEDS: LORATADINE 10 MG TABLET PO (09:28)
[2019-12-07] MEDS: DIVALPROEX SODIUM 250 MG TABEC PO (09:28)
[2019-12-07] MEDS: POTASSIUM CHLORIDE 20 MEQ TABLET 40 MEQ PO (09:28)
[2019-12-07] MEDS: lisinopriL 10 MG TABLET PO (09:29)
[2019-12-07] MEDS: VENLAFAXINE HCL XR 75 MG CAP.ER.24H 225 MG PO (09:29)
[2019-12-07] MEDS: ENOXAPARIN 40 MG/0.4 ML SYRINGE SUB-Q (09:29)
[2019-12-07] MEDS: HYDROcodone/acetaminophen (*CRX) 5-325 MG TABLET 1 TAB PO (09:30)
[2019-12-07] MEDS: LORazepam (*CRX) 0.5 MG TABLET PO (09:31)
--- NOTE | 2019-12-07 10:45 | PM.DS ---
DS: Admitting Diagnosis Admitting Diagnosis Admitting Diagnosis: Overdose DS: Discharge Diagnosis Discharge Diagnosis (1) ARDS (adult respiratory distress syndrome): Onset Date: ~12/03/19 Code(s): J80 - Acute respiratory distress syndrome Status: Acute Assessment and Plan: Date of Admission: 12/03/19 Date of Discharge/DOS: 12/07/19 Ms. Lyn is a 29yo F with history of depression and anxiety who was transferred from [facility] after unintentional drug overdose with fentanyl and subsequent development of aspiration pneumonitis. Patient smokes marijuana on occasion but denies any history of drug use. She was brought to [facility] 12/01 after being found unresponsive, began to arouse after Narcan was administered. She was transferred ICU. She was started on antibiotics with IV Zosyn and supplemental oxygen for acute hypoxic respiratory failure. She was treated nebulized bronchodilator therapy. COVID negative 12/02. Blood cultures still pending with no growth to date day of discharge. She improved with therapy outlined above and was weaned off supplemental oxygen, tolerating room air with good saturation on day of discharge. D-dimer elevated on day of discharge, discussed with patient the possibility pulmonary embolism. She declined CTA at this time. She was educated on return to ED instructions. She was hemodynamically stable for discharge 12/07/19 with instructions to follow-up with PCP. She denies homicidal or suicidal ideation, notes that she does not have any drugs in the home and has no intentions of abusing opioids again in the future. She was provided resources to help find a psychologist/counselor. She was discharged with oral antibiotics to complete the course for treatment of aspiration pneumonitis. (2) Aspiration pneumonitis: Onset Date: ~12/03/19 Code(s): J69.0 - Pneumonitis due to inhalation of food and vomit Status: Acute Assessment and Plan: ----- Improved. Stable. Off oxygen. Related to her episode of nausea and vomiting after her unintentional overdose. (3) Opiate overdose: Onset Date: ~12/03/19 Code(s): T40.601A - Poisoning by unspecified narcotics, accidental (unintentional), initial encounter Status: Acute Assessment and Plan: Patient states that she had an unintentional overdose on December 01 with hydrocodone. She was only home for a short period time when she has again overdose this time with fentanyl. Presumably she has no drug history. No evidence that these are suicidal attempts. She has been educated about the benefits abstain from drug use. Care coordination has provided resources for support services. (4) Suspected COVID-19 virus infection: Code(s): Z20.828 - Contact with and (suspected) exposure to other viral communicable diseases Status: Ruled-out Assessment and Plan: COVID negative 12/03/19. (5) Essential hypertension: Code(s): I10 - Essential (primary) hypertension Status: Chronic Assessment and Plan: Stable. (6) Depression: Code(s): F32.9 - Major depressive disorder, single episode, unspecified Status: Chronic Assessment and Plan: Mood is stable day of discharge maintained on her home Depakote, Elavil and Effexor. (7) DVT prophylaxis: Code(s): Z29.9 - Encounter for prophylactic measures, unspecified Status: Acute Assessment and Plan: Lovenox. DS: Summary Time Spent with Patient Time attestation: Total time spent providing and/or coordinating discharge services: 35 minutes Exam Narrative: Exam Narrative: Gen
== END 2019-12-07 12:20 | disposition home or self-care (01) | DRG 812 ==
LOC: ANHICU 09:53 → ANH3MEDSUR 12-06 08:46 → ANHICU 12-09 16:15
PROVIDERS: Internal Medicine; Physician Assistant; Admitting Provider Internal Medicine; PCP Internal Medicine; Visit Provider Physician Assistant
DX: T40.4X1A Poisoning by other synthetic narcotics, accidental (unintentional), initial encounter (principal); J69.0 Pneumonitis due to inhalation of food and vomit; J80 Acute respiratory distress syndrome; Z20.828 Contact with and (suspected) exposure to other viral communicable diseases; R00.0 Tachycardia, unspecified; I10 Essential (primary) hypertension; F32.9 Major depressive disorder, single episode, unspecified; F41.9 Anxiety disorder, unspecified; F17.210 Nicotine dependence, cigarettes, uncomplicated; F12.90 Cannabis use, unspecified, uncomplicated; G43.909 Migraine, unspecified, not intractable, without status migrainosus; M54.2 Cervicalgia; G89.29 Other chronic pain; Z79.899 Other long term (current) drug therapy
CPT/HCPCS: 36415; 71045; 71046; 80048; 80053; 81001; 83735; 83880; 84443; 85027; 85380; 86140; 93306; 94640; A9270; J1650; J1940; J2543; J3475

== ENCOUNTER 2020-02-02 07:32 | Outpatient (CLI) | payer BC, MEDICAID, SELFPAY ==
[2020-02-02 08:52] LABS: SARS-CoV-2 Ag Negative (Negative)
== END 2020-02-02 07:33 | disposition home or self-care (01) ==
PROVIDERS: PCP Internal Medicine; Visit Provider Internal Medicine
DX: Z20.828 Contact with and (suspected) exposure to other viral communicable diseases (principal)
CPT/HCPCS: 87426

== ENCOUNTER 2020-02-07 07:10 | Emergency (ER) | payer BC, MEDICAID, SELFPAY ==
[2020-02-07 07:10] VITALS: BP 124/85; PULSE 143; RESP 20; O2SAT 98
--- NOTE | 2020-02-07 07:28 | ED.OVERDOSE ---
HPI - Overdose General Chief Complaint: Overdose Stated Complaint: ambulance Time Seen by Provider: 02/07/20 07:10 Source: patient, EMS and RN notes reviewed Mode of arrival: EMS Limitations: no limitations History of Present Illness HPI Narrative: EMS arrived on scene for patient was unresponsive, family during CPR. Patient had agonal breaths. EMS instructed them to stop. patient was then given Narcan 4 mg. she became alert and interactive on arrival to the hospital. Patient initially denied taking any medications but then told me she took fentanyl that she bought off the street. EMS states they did not need to do any CPR. She had good heart rate in spontaneous respirations. MD complaint: accidental overdose Onset (ago): hour(s) (1.5) Timing confirmed by: family member Context: Accidental Overdose: wanted to get high Treatments Prior to Arrival: narcan (4 mg) and IV fluids Related Data Home Medications Medication Instructions Recorded Confirmed lisinopril 10 mg PO DAILY 04/10/19 02/07/20 trazodone 50 mg PO HS PRN 04/10/19 02/07/20 venlafaxine [Effexor XR] 225 mg PO DAILY 04/10/19 02/07/20 divalproex 250 mg PO BID 12/02/19 02/07/20 rizatriptan 10 mg PO PRN PRN 12/02/19 02/07/20 tizanidine 4 mg PO PRN PRN 12/02/19 02/07/20 amitriptyline 75 mg PO HS 12/03/19 02/07/20 Allergies Allergy/AdvReac Type Severity Reaction Status Date / Time No Known Allergies Allergy Unverified 03/07/17 06:25 Review of Systems Review of Systems: All systems reviewed & are unremarkable except as noted in HPI and below Constitutional: Constitutional: Denies chills, Denies fever(s) and Denies weakness Eyes: Eyes: Denies no additional eye complaints Cardiovascular: Cardiovascular: Denies no additional cardiovascular complaints Respiratory: Respiratory: Denies no additional respiratory complaints Gastrointestinal: Gastrointestinal: Reports nausea and Reports vomiting (in the ED) Genitourinary: Genitourinary: Reports no additional female genitourinary complaints Musculoskeletal: Comments: states her left leg hurts from where the intraosseous catheters placed Neurologic: Reports system reviewed and no additional complaints, except as documented Psychiatric: Psychiatric: Reports no additional psychiatric complaints Endocrine: Endocrine: Reports no additional endocrine complaints PMFSH Past Medical History Medical History ARDS (adult respiratory distress syndrome) (~12/03/19) Aspiration pneumonitis (~12/03/19) Depression 4 Para 2 with 3 children (twins) and 2 miscarriages HTN (hypertension) Surgical History Surgical History Hx of section Hx of cholecystectomy Hx of tonsillectomy Hx of wisdom tooth extraction Family History Family History Grandparent Cerebrovascular accident Diabetes mellitus Mother Hypertension Other Family history of allergic disorder Social History Social History (Updated 02/07/20 @ 07:43 by Kunal Pepper MD) Social History: Patient admits to smoking marijuana. Drug use as mentioned above although denies any prior history drug use. She smokes half a pack a day the past 5-6 years. Rarely drinks alcohol. She lives at home with her mother, father and 3 children. She is a full code. Her father is the individual would make medical decisions for her if she is not able. Years smoked: 7 Smoking status: Light tobacco smoker Tobacco type: cigarettes Second hand tobacco smoke exposure: Yes Alcohol intake: never Drinks per week: 0 Substance use: current Substance use type: marijuana and painkillers Other substance usage details: patient admits to buying fentanyl off the street Gender identity (if verbalized by the patient): Female Spiritual care concerns: No Agree to blood products: Yes Exam
[2020-02-07] MEDS: ONDANSETRON INJ 4 MG/2 ML VIAL IV PUSH (07:30)
--- NOTE | 2020-02-07 07:31 | ECG_ITS ---
Measurements Intervals [place] Rate: 120 P: 47 NH: 160 QRS: 37 QRSD: 84 T: 43 QT: 427 QTc: 603 Interpretive Statements SINUS TACHYCARDIA NONSPECIFIC ST & T-WAVE ABNORMALITY- INFERIOR LEADS BASELINE ARTIFACT- II, III, AVR, AVL, AVF ABNORMAL ECG Electronically Signed On 02-07-2020 7:39:22 [employer] by Navdeep Colmenares D.O.
[2020-02-07 07:43] LABS: Basophils Absolute Auto 0.05 K/mm3 (0.00-0.10); Basophils Percent Auto 0.6 % (0.0-1.0); Eosinophils Absolute Auto 0.37 K/mm3 (0.02-0.50); Eosinophils Percent Auto 4.7 % (1.0-6.0); Hematocrit 37.3 % (35.0-49.0); Hemoglobin 12.8 g/dL (12.0-15.0); Immature Granulocyte Absolute 0.02 K/mm3 (0.00-0.00); Immature Granulocyte Percent A 0.3 % (0.0-0.0); Lymphocytes Absolute Auto 3.33 K/mm3 (1.10-4.50); Lymphocytes Percent Auto 42.4 % (18.0-42.0); Mean Corpuscular HGB Conc 34.3 g/dL (32.0-36.0); Mean Corpuscular Hemoglobin 33.5 pg (27.0-31.0); Mean Corpuscular Volume 97.6 fL (78.0-102.0); Monocytes Absolute Auto 0.53 K/mm3 (0.10-0.90); Monocytes Percent Auto 6.8 % (2.0-11.0); Neutrophils Absolute Auto 3.6 K/mm3 (1.7-7.2); Neutrophils Percent Auto 45.2 % (50.0-70.0); Platelet Count Result 263 K/mm3 (150-420); Red Blood Count 3.82 M/mm3 (4.20-5.40); Red Cell Distribution Width 11.9 % (11.6-14.4); White Blood Count 7.9 K/mm3 (4.8-10.8)
[2020-02-07 07:47] VITALS: RESP 20
[2020-02-07 07:56] LABS: Alanine Aminotransferase 73 U/L (14-59); Albumin Level 3.7 g/dL (3.4-5.0); Alkaline Phosphatase 184 U/L (46-116); Anion Gap 9 mmol/L (8-16); Aspartate Amino Transferase 73 U/L (15-37); Bilirubin,Total 0.4 mg/dL (0.00-1.00); Blood Urea Nitrogen 11 mg/dL (7-18); Calcium 9.1 mg/dL (8.5-10.1); Carbon Dioxide 28 mmol/L (21-32); Chloride 103 mmol/L (98-108); Estimated Glomerular Filt Rate > 60; Glucose 258 mg/dL (70-99); Magnesium 1.8 mg/dL (1.8-2.4); Osmolality Calculated 298 mOsm/kg (285-295); Potassium 4.3 mmol/L (3.5-5.1); Salicylate 1.4 mg/dL (2.8-20.0); Sodium 140 mmol/L (136-145); Total Protein 8.1 g/dL (6.4-8.2)
[2020-02-07 07:57] LABS: Acetaminophen 0 ug/mL (10-30); Ethanol < 3 mg/dL (0-6)
[2020-02-07 08:02] VITALS: BP 153/99; PULSE 116; RESP 20; O2SAT 96
[2020-02-07 08:04] LABS: Add Urine Microscopic? YES; Appearance Urine Clear (Clear); Bilirubin Urine Negative (Negative); Blood Urine 2+ (Negative); Color Urine Yellow (Yellow); Glucose Urine UA 2+ (Negative); Ketones Urine Negative (Negative); Leukocyte Esterase Ur Negative LEU/UL (Negative); Nitrate Urine Negative (Negative); Protein Urine Trace (Negative); Specific Grav Ur >= 1.030 (1.010-1.020); Urobilinogen Urine 0.2 mg/dL (0.2-1.0); pH Urine 5.5 (5.0-8.0)
--- NOTE | 2020-02-07 08:05 | PC.NURSE ---
pt was tested last week friday02/02/2020, positive results same day, pt has been quarantined at home since contacted by public health department
[2020-02-07 08:10] VITALS: TEMP 36.1
[2020-02-07 08:15] LABS: Amphetamine Screen Urine Negative (Negative); Bacteria Urine Trace /hpf; Barbiturate Screen Urine Negative (Negative); Benzodiazepines Screen Urine Negative (Negative); Cannabinoid Screen Urine Negative (Negative); Cocaine Screen Urine Negative (Negative); Methadone Screen Urine Negative (Negative); Mucus Urine Moderate /lpf; Opiate Screen Urine Negative (Negative); Phencyclidine Screen Urine Negative (Negative); WBC Urine 0-3 /hpf (0-3)
[2020-02-07 09:10] VITALS: BP 147/85; PULSE 114; RESP 20; TEMP 36.9; O2SAT 98
== END 2020-02-07 09:12 | disposition home or self-care (01) ==
PROVIDERS: Emergency Provider Emergency Medicine; PCP Internal Medicine
DX: T40.2X1A Poisoning by other opioids, accidental (unintentional), initial encounter (principal)
CPT/HCPCS: 36415; 80053; 80307; 81001; 83036; 83735; 85025; 93005; 96374; 99283; 99284; J2405

== ENCOUNTER 2020-02-18 23:48 | Emergency (ER) | payer BC, MEDICAID, SELFPAY ==
--- NOTE | ~2020-02-18 | XR_ITS ---
XR chest 1V portable 02/19/2020 00:25 Indication: Overdose. Vomiting. Procedure: AP portable chest Comparison: Comparison to multiple prior studies sequentially, with oldest reviewed study dated 12/05. Findings: Heart size normal. Left lung clear. Focal infiltrate medially in the right lower lung zone which may represent atelectasis or developing pneumonia. Impression: 1: Focal infiltrate right lower lung zone, atelectasis versus pneumonia. Reviewed, dictated and finalized at location A. OT TIER Impression: 1: Focal infiltrate right lower lung zone, atelectasis versus pneumonia.
[2020-02-19] MEDS: ONDANSETRON INJ 4 MG/2 ML VIAL IV PUSH (00:05)
[2020-02-19 00:15] VITALS: BP 140/88; PULSE 90; RESP 20; TEMP 37; O2SAT 95
[2020-02-19 00:22] LABS: Basophils Absolute Auto 0.04 K/mm3 (0.00-0.10); Basophils Percent Auto 0.4 % (0.0-1.0); Eosinophils Absolute Auto 0.29 K/mm3 (0.02-0.50); Eosinophils Percent Auto 2.7 % (1.0-6.0); Hematocrit 39.2 % (35.0-49.0); Hemoglobin 13.6 g/dL (12.0-15.0); Immature Granulocyte Absolute 0.03 K/mm3 (0.00-0.00); Immature Granulocyte Percent A 0.3 % (0.0-0.0); Lymphocytes Absolute Auto 2.64 K/mm3 (1.10-4.50); Lymphocytes Percent Auto 24.4 % (18.0-42.0); Mean Corpuscular HGB Conc 34.7 g/dL (32.0-36.0); Mean Corpuscular Hemoglobin 33.7 pg (27.0-31.0); Mean Platelet Volume 9.7 fl (9.2-11.8); Monocytes Absolute Auto 0.41 K/mm3 (0.10-0.90); Monocytes Percent Auto 3.8 % (2.0-11.0); Neutrophils Absolute Auto 7.4 K/mm3 (1.7-7.2); Neutrophils Percent Auto 68.4 % (50.0-70.0); Platelet Count Result 268 K/mm3 (150-420); Red Blood Count 4.04 M/mm3 (4.20-5.40); Red Cell Distribution Width 12.1 % (11.6-14.4); White Blood Count 10.8 K/mm3 (4.8-10.8)
[2020-02-19 00:38] LABS: INR 0.9; Partial Thromboplastin Time 21.6 SEC (23.90-30.70); Prothrombin Time 10.4 Seconds (9.50-12.10)
[2020-02-19 00:40] VITALS: BP 140/88; PULSE 90; RESP 18; O2SAT 96
[2020-02-19 00:46] LABS: Lactic Acid Reflex 2.3 mmol/L (0.4-2.0)
[2020-02-19 00:57] LABS: Alanine Aminotransferase 33 U/L (14-59); Albumin Level 3.8 g/dL (3.4-5.0); Alkaline Phosphatase 119 U/L (46-116); Ammonia 15 umol/L (11-32); Anion Gap 10 mmol/L (8-16); Aspartate Amino Transferase 32 U/L (15-37); Bilirubin,Total 0.4 mg/dL (0.00-1.00); Blood Urea Nitrogen 9 mg/dL (7-18); Calcium 9.1 mg/dL (8.5-10.1); Carbon Dioxide 28 mmol/L (21-32); Chloride 101 mmol/L (98-108); Creatine Kinase 76 U/L (26-192); Digoxin < 0.2 ng/mL (0.9-2.0); Estimated CRCL calculation 87 ml/min; Estimated Glomerular Filt Rate 56; Ethanol 5 mg/dL (0-6); Glucose 220 mg/dL (70-99); Osmolality Calculated 293 mOsm/kg (285-295); Phenytoin Dilantin < 1 ug/mL (10-20); Potassium 3.9 mmol/L (3.5-5.1); Salicylate 1.8 mg/dL (2.8-20.0); Sodium 139 mmol/L (136-145)
[2020-02-19 00:58] LABS: Acetaminophen < 1 ug/mL (10-30)
[2020-02-19 01:14] LABS: Add Urine Microscopic? YES; Appearance Urine Clear (Clear); Bilirubin Urine Negative (Negative); Blood Urine 2+ (Negative); Color Urine Yellow (Yellow); Glucose Urine UA Negative (Negative); Ketones Urine Negative (Negative); Leukocyte Esterase Ur Negative LEU/UL (Negative); Nitrate Urine Negative (Negative); Protein Urine Negative (Negative); Specific Grav Ur >= 1.030 (1.010-1.020); Urobilinogen Urine 0.2 mg/dL (0.2-1.0); pH Urine 5.5 (5.0-8.0)
[2020-02-19 01:15] VITALS: BP 142/88; PULSE 92; RESP 18; O2SAT 95
--- NOTE | 2020-02-19 01:18 | ED.OVERDOSE ---
HPI - Overdose General Chief Complaint: Overdose Stated Complaint: 29 YO female w/ known h.o fentanyl addiction here by EMS after she Overdosed yet again. Patient was resuscitated w/ Narcan x 2 Doses. She has been to our ER on many occassions w/ same pattern of overdose c/w Suicide attempt. Patient wheeled into my ER awake, alert, vomiting. She denies Suicide attempt but the recurrent nature of this make me question he motive.OVERDOSE Related Data Home Medications Medication Instructions Recorded Confirmed lisinopril 10 mg PO DAILY 04/10/19 02/19/20 trazodone 50 mg PO HS PRN 04/10/19 02/19/20 venlafaxine [Effexor XR] 225 mg PO DAILY 04/10/19 02/19/20 divalproex 250 mg PO BID 12/02/19 02/19/20 rizatriptan 10 mg PO PRN PRN 12/02/19 02/19/20 tizanidine 4 mg PO PRN PRN 12/02/19 02/19/20 amitriptyline 75 mg PO HS 12/03/19 02/19/20 Allergies Allergy/AdvReac Type Severity Reaction Status Date / Time No Known Allergies Allergy Unverified 03/07/17 06:25 Review of Systems Review of Systems: All systems reviewed & are unremarkable except as noted in HPI and below Constitutional: Constitutional: Reports no additional constitutional complaints Eyes: Eyes: Reports no additional eye complaints ENT: Reports system reviewed and no additional complaints, except as documented Cardiovascular: Cardiovascular: Reports no additional cardiovascular complaints Respiratory: Respiratory: Reports no additional respiratory complaints Gastrointestinal: Gastrointestinal: Denies abdominal pain, Denies diarrhea, Reports nausea and Reports vomiting Genitourinary: Genitourinary: Reports no additional female genitourinary complaints Musculoskeletal: Musculoskeletal: Reports no additional musculoskeletal complaints Integumentary/Breasts: Skin/Breast: Reports system reviewed and no additional complaints, except as docu Neurologic: Reports system reviewed and no additional complaints, except as documented Psychiatric: Psychiatric: Reports depression and Reports suicidal ideation Endocrine: Endocrine: Reports no additional endocrine complaints Hematologic/Lymphatic: Hematologic/Lymphatic: Reports no additional hematologic/lymphatic complaints Allergic/Immunologic: Allergic/Immunologic: Reports no additional allergic/immunologic complaints PMFSH Past Medical History Medical History ARDS (adult respiratory distress syndrome) (~12/03/19) Aspiration pneumonitis (~12/03/19) Depression Fentanyl dependence 4 Para 2 with 3 children (twins) and 2 miscarriages HTN (hypertension) Surgical History Surgical History Hx of section Hx of cholecystectomy Hx of tonsillectomy Hx of wisdom tooth extraction Family History Family History Grandparent Cerebrovascular accident Diabetes mellitus Mother Hypertension Other Family history of allergic disorder Social History Social History Social History: Patient admits to smoking marijuana. Drug use as mentioned above although denies any prior history drug use. She smokes half a pack a day the past 5-6 years. Rarely drinks alcohol. She lives at home with her mother, father and 3 children. She is a full code. Her father is the individual would make medical decisions for her if she is not able. Years smoked: 7 Smoking status: Light tobacco smoker Tobacco type: cigarettes Second hand tobacco smoke exposure: Yes Alcohol intake: never Drinks per week: 0 Substance use: current Substance use type: marijuana and painkillers Other substance usage details: patient admits to buying fentanyl off the street Gender identity (if verbalized by the patient): Female Spiritual care concerns: No Agree to blood products: Yes Exam Const: Gen
[2020-02-19 01:20] LABS: Bacteria Urine None seen /hpf; Squamous Epithelial Cell Urine Few /hpf (Few); WBC Urine 0-3 /hpf (0-3)
[2020-02-19 01:21] LABS: Amphetamine Screen Urine Negative (Negative); Barbiturate Screen Urine Negative (Negative); Benzodiazepines Screen Urine Negative (Negative); Cannabinoid Screen Urine Negative (Negative); Cocaine Screen Urine Negative (Negative); Methadone Screen Urine Negative (Negative); Opiate Screen Urine Negative (Negative); Phencyclidine Screen Urine Negative (Negative)
--- NOTE | 2020-02-19 01:30 | PC.NURSE ---
[place] mamta paged to eval patient
--- NOTE | 2020-02-19 01:56 | PC.NURSE ---
allowed to call mom, crying and yelling
[2020-02-19] MEDS: ONDANSETRON INJ 4 MG/2 ML VIAL (01:58)
[2020-02-19 02:00] VITALS: BP 142/80; PULSE 92; RESP 18; TEMP 36.6; O2SAT 95
--- NOTE | 2020-02-19 02:18 | PC.NURSE ---
off phone with mom, drink given. cont tearful
--- NOTE | 2020-02-19 02:41 | PC.NURSE ---
[facility] here with patient
[2020-02-19 02:44] VITALS: BP 144/80; PULSE 90; RESP 20; O2SAT 95
[2020-02-19 03:22] LABS: Reflex Lactic Acid Yes or No Add Lactic
--- NOTE | 2020-02-19 04:10 | PC.NURSE ---
[place] [address] cont wit patient, more soda given to patient
[2020-02-19] MEDS: ONDANSETRON HCL ODT 4 MG TABLET 8 MG (04:20)
--- NOTE | 2020-02-19 05:40 | PC.NURSE ---
& azt agree to patient discharge
--- NOTE | 2020-02-19 05:42 | PC.NURSE ---
[facility] notified of discharge plan
[2020-02-19 06:00] VITALS: BP 138/80; PULSE 80; RESP 18; TEMP 36.4; O2SAT 95
[2020-02-22 14:58] LABS: Lithium <0.15 mmol/L (0.60-1.20)
[2020-02-23 07:00] LABS: Valproic Acid 24.4 mg/L (50.0-100.0)
[2020-02-25 05:31] LABS: Carbamazepine Tegretol <0.2 mcg/mL (4.0-12.0)
== END 2020-02-19 06:01 | disposition home or self-care (01) ==
PROVIDERS: Emergency Provider Family Medicine
DX: F11.20 Opioid dependence, uncomplicated (principal); T40.411A Poisoning by fentanyl or fentanyl analogs, accidental (unintentional), initial encounter
CPT/HCPCS: 36415; 71045; 80053; 80156; 80162; 80164; 80178; 80184; 80185; 80307; 81001; 82140; 82550; 83605; 85025; 85610; 85730; 93005; 96374; 96376; 99283; 99284; A9270; J2405

== ENCOUNTER 2020-04-11 10:17 | Outpatient (CLI) | payer BC, MEDICAID, SELFPAY ==
[2020-04-12 14:05] LABS: SARS-CoV-2 RNA PCR Negative
== END 2020-04-11 10:18 | disposition home or self-care (01) ==
PROVIDERS: PCP Internal Medicine; Visit Provider Internal Medicine
DX: Z20.822 Contact with and (suspected) exposure to COVID-19 (principal)
CPT/HCPCS: C9803; U0003; U0005

== ENCOUNTER 2020-06-14 14:54 | Outpatient (RCR) | payer BC, MEDICAID, SELFPAY ==
--- NOTE | 2020-06-14 15:35 | PTOPEVAL ---
Thank you for referring Gina Lyn to [facility].? The patient is scheduled to be seen for therapy? __2__x/week for 10 visits. Please review, sign, date and return this plan of care DUNG. I agree with and certify that the following plan of care is medically necessary. Referring Physician Date Admitting Provider: Attending Provider: Tee Jerez MD Referring Provider: *PT Outpatient Evaluation Start: 06/14/20 15:06 Freq: Status: Active Protocol: Document 06/14/20 15:06 BETTY (Rec: 06/14/20 15:33 BETTY [id number]) Therapy Assessment Status Assessment Status Assessment Status Evaluation Outpatient Past Medical History Neurological History Hx Neurological Disorders No Significant History Cardiovascular History Hx Hypertension Yes Hx Palpitations Yes Respiratory History Hx Asthma Yes Hx Other Respiratory Disorders Yes Gastrointestinal History Hx Cholecystectomy Yes Hx Gastroesophageal Reflux Disease Yes Genitourinary History Hx Urinary Tract Infection Yes Musculoskeletal History Hx Back Pain Yes Hematological History Hx Hematological Disorders No Significant History Endocrine History Hx Endocrine Disorders No Significant History HEENT History Hx Tonsillectomy Yes: 2009 Integumentary History Hx Skin Disorders No Significant History Reproductive History Hx Section Yes Psychosocial History Hx Anxiety Yes Hx Depression Yes Hx Eating Disorder Yes: obesity Hx Psychiatric Treatment Yes Pain History History of Long-Term Prescription Pain Yes: opoid abuse Medication Use (Opiates) Anesthesia History Hx Anesthesia Reactions No Significant History Evaluation Information Problem Diagnosis neck pain Onset 05/14/20 Subjective Information Pt. reports that she started Query Text:As Reported By Patient/ noting gradual onset of neck Family pain about 1 month ago. She reports that she gets some relief with popping her neck. She reports that pain is located down the neck and pulls into the shoulder blade on both the right and left. She reports that sitting increases her pain most. She note alot of stiffness in the morning. she states that her goal is to reduce her neck pain. Prior Level of Function
== END 2020-06-14 15:46 | disposition home or self-care (01) ==
LOC: CHSPT 14:54
PROVIDERS: PCP Internal Medicine; Visit Provider Internal Medicine
DX: M54.2 Cervicalgia (principal)
CPT/HCPCS: 97014; 97110; 97161; G0283

== ENCOUNTER 2020-11-23 13:50 | Outpatient (CLI) | payer BC, SELFPAY ==
[2020-11-23 14:59] LABS: SARS-CoV-2 Ag Negative (Negative)
== END 2020-11-23 13:51 | disposition home or self-care (01) ==
PROVIDERS: PCP Internal Medicine; Visit Provider Internal Medicine
DX: R50.9 Fever, unspecified (principal); Z20.822 Contact with and (suspected) exposure to COVID-19
CPT/HCPCS: 87426; C9803

== ENCOUNTER 2021-01-15 15:44 | Outpatient (CLI) | payer BC, MEDICAID, SELFPAY ==
[2021-01-15 18:19] LABS: SARS-CoV-2 RNA PCR Negative (Negative)
[2021-01-15 19:25] LABS: Influenza A QL RT-PCR Negative (Negative); Influenza B QL RT-PCR Negative (Negative)
== END 2021-01-15 15:45 | disposition home or self-care (01) ==
LOC: CHSLAB 15:47
PROVIDERS: PCP Internal Medicine; Visit Provider Internal Medicine
DX: J06.9 Acute upper respiratory infection, unspecified (principal); Z20.822 Contact with and (suspected) exposure to COVID-19
CPT/HCPCS: 87502; C9803; U0003; U0005

== ENCOUNTER 2021-03-22 16:17 | Outpatient (CLI) | payer BC, MEDICAID, SELFPAY ==
[2021-03-22 18:00] LABS: Influenza Control Valid (Valid)
[2021-03-22 19:24] LABS: SARS-CoV-2 Ag Negative (Negative)
== END 2021-03-22 16:18 | disposition home or self-care (01) ==
PROVIDERS: PCP Internal Medicine; Visit Provider Internal Medicine
DX: J06.9 Acute upper respiratory infection, unspecified (principal); Z20.822 Contact with and (suspected) exposure to COVID-19
CPT/HCPCS: 87081; 87426; 87804; 87880; C9803

== ENCOUNTER 2021-04-03 13:51 | Outpatient (CLI) | payer BC, MEDICAID, SELFPAY ==
[2021-04-03 17:56] LABS: Influenza Control Valid (Valid); SARS-CoV-2 Ag Negative (Negative)
== END 2021-04-03 13:52 | disposition home or self-care (01) ==
LOC: CHSLAB 13:54
PROVIDERS: PCP Internal Medicine; Visit Provider Internal Medicine
DX: J06.9 Acute upper respiratory infection, unspecified (principal); Z79.899 Other long term (current) drug therapy
CPT/HCPCS: 87081; 87426; 87804; 87880; C9803

== ENCOUNTER 2021-04-06 13:53 | Outpatient (CLI) | payer BC, MEDICAID, SELFPAY ==
[2021-04-06 15:53] LABS: SARS-CoV-2 Ag Negative (Negative)
[2021-04-07 20:23] LABS: SARS-CoV-2 RNA PCR Negative
== END 2021-04-06 13:54 | disposition home or self-care (01) ==
LOC: CHSLAB 13:58
PROVIDERS: PCP Internal Medicine; Visit Provider Internal Medicine
DX: J06.9 Acute upper respiratory infection, unspecified (principal); Z20.822 Contact with and (suspected) exposure to COVID-19
CPT/HCPCS: 87426; C9803; U0003; U0005

== ENCOUNTER 2021-05-08 13:42 | Outpatient (CLI) | payer BC, MEDICAID, SELFPAY ==
[2021-05-08 15:07] LABS: Influenza Control Valid (Valid); SARS-CoV-2 Ag Negative (Negative)
[2021-05-08 15:42] LABS: SARS-CoV-2 RNA PCR Negative (Negative)
== END 2021-05-08 13:43 | disposition home or self-care (01) ==
LOC: CHSLAB 13:45
PROVIDERS: PCP Internal Medicine; Visit Provider Nurse Practitioner Family
DX: R50.9 Fever, unspecified (principal); Z20.822 Contact with and (suspected) exposure to COVID-19
CPT/HCPCS: 87426; 87804; C9803; U0003; U0005

== ENCOUNTER 2021-09-27 22:11 | Emergency (ER) | payer OTHER, SELFPAY ==
--- NOTE | ~2021-09-27 | XR_ITS ---
EXAMINATION: XR chest 1V portable DATE: 09/27/2021 22:54 INDICATION: Chest pain. TECHNIQUE: A single frontal view of the chest was obtained. COMPARISON: Chest single view 02/18/2020 FINDINGS: The chest demonstrates clear lungs without pneumonia, pleural effusion, or pneumothorax. Th e heart size is normal. IMPRESSION: 1. No acute cardiopulmonary disease. Reviewed, dictated and finalized at location A.
--- NOTE | ~2021-09-27 | CT_ITS ---
EXAMINATION: CT brain wo con DATE: 09/28/2021 01:05 INDICATION: Altered mental status. TECHNIQUE: Computed tomography (CT) of the head was performed without intravenous contrast. The mA wa s adjusted according to patient size. Iterative reconstruction technique was employed. The dose-lengt h product was 605.33 mGy-cm. COMPARISON: Head CT 05/14/2019 FINDINGS: There is no intracranial hemorrhage, acute infarction, or abnormal intracranial mass lesion . The ventricles are normal in size. The orbits are normal. The mastoid air cells are normal. There i s mucosal thickening in the paranasal sinuses. IMPRESSION: 1. Normal brain. Reviewed, dictated and finalized at location A. IMPRESSION: 1. Normal brain.
--- NOTE | ~2021-09-27 | XR_ITS ---
EXAMINATION: XR chest 1V portable DATE: 09/28/2021 00:24 INDICATION: Intubation. TECHNIQUE: A single frontal view of the chest was obtained. COMPARISON: Chest single view 09/27/2021 FINDINGS: The chest demonstrates clear lungs without pneumonia, pleural effusion, or pneumothorax. Th e heart size is normal. The nasogastric tube tip is in the stomach. The endotracheal tube tip is at t he level of the karon. IMPRESSION: 1. Endotracheal tube tip at the level of the karon. Reviewed, dictated and finalized at location A.
[2021-09-27 22:22] VITALS: BP 112/51; PULSE 143; RESP 24; TEMP 36.6; O2SAT 98
--- NOTE | 2021-09-27 22:42 | ECG_ITS ---
Measurements Intervals [place] Rate: 114 P: 48 FL: 159 QRS: 37 QRSD: 88 T: 33 QT: 317 QTc: 437 Interpretive Statements SINUS TACHYCARDIA BORDERLINE ST-T WAVE ABNORMALITY- DIFFUSE LEADS BASELINE WANDER- I, II, III, AVL, AVF, V1-V2 ABNORMAL ECG Electronically Signed On 09-28-2021 4:03:13 CDT by Navdeep Colmenares D.O.
[2021-09-27 22:45] LABS: Appearance Urine Clear (Clear); Bilirubin Urine 2+ (Negative); Blood Urine 1+ (Negative); Glucose Urine UA Trace (Negative); Ketones Urine 1+ (Negative); Leukocyte Esterase Ur Trace LEU/UL (Negative); Nitrate Urine Negative (Negative); Protein Urine 2+ (Negative); Specific Grav Ur >= 1.030 (1.010-1.020); pH Urine 5.5 (5.0-8.0)
[2021-09-27 22:52] LABS: Add Urine Microscopic? YES; Bacteria Urine 4+ /hpf; Color Urine Dark Orange (Yellow); RBC Urine 21-50 /hpf (0-2); Squamous Epithelial Cell Urine Moderate /hpf (Few); WBC Urine 16-20 /hpf (0-3)
[2021-09-27 22:53] LABS: Pregnancy On Board Control Positive; Urine Pregnancy Test Negative
[2021-09-27 22:53] LABS: Amphetamine Screen Urine Negative (Negative); Barbiturate Screen Urine Negative (Negative); Benzodiazepines Screen Urine Positive (Negative); Cannabinoid Screen Urine Positive (Negative); Cocaine Screen Urine Negative (Negative); Methadone Screen Urine Negative (Negative); Opiate Screen Urine Positive (Negative); Phencyclidine Screen Urine Negative (Negative)
[2021-09-27] MEDS: LORazepam INJ (*CRX) 2 MG/ML VIAL IV PUSH ×2 (23:05→23:37)
[2021-09-27] MEDS: SODIUM CHLORIDE 0.9% IV 1,000 ML 999 ML IV CONT ×2 (23:07→23:08)
[2021-09-27 23:08] LABS: Hematocrit 38.3 % (35.0-49.0); Hemoglobin 13.6 g/dL (12.0-15.0); Mean Corpuscular HGB Conc 35.5 g/dL (32.0-36.0); Mean Corpuscular Hemoglobin 33.4 pg (27.0-31.0); Mean Corpuscular Volume 94.1 fL (78.0-102.0); Mean Platelet Volume 10.2 fl (9.2-11.8); Platelet Count Result 314 K/mm3 (150-420); Red Blood Count 4.07 M/mm3 (4.20-5.40); Red Cell Distribution Width 12.1 % (11.6-14.4); White Blood Count 17.8 K/mm3 (4.8-10.8)
--- NOTE | 2021-09-27 23:37 | PC.NURSE ---
Pt increasingly agitated, 2nd dose Ativan given emergently
[2021-09-27 23:44] VITALS: O2SAT 92
[2021-09-27 23:45] VITALS: BP 143/111; O2SAT 91
[2021-09-27 23:46] VITALS: O2SAT 91
[2021-09-27 23:48] LABS: Alanine Aminotransferase 161 U/L (14-59); Albumin Level 4.3 g/dL (3.4-5.0); Alkaline Phosphatase 216 U/L (46-116); Anion Gap 13 mmol/L (8-16); Aspartate Amino Transferase 85 U/L (15-37); Bilirubin,Total 1.7 mg/dL (0.00-1.00); Blood Urea Nitrogen 10 mg/dL (7-18); Calcium 9.6 mg/dL (8.5-10.1); Carbon Dioxide 26 mmol/L (21-32); Chloride 103 mmol/L (98-108); Creatine Kinase 284 U/L (26-192); Estimated Glomerular Filt Rate 49; Glucose 121 mg/dL (70-99); Osmolality Calculated 294 mOsm/kg (285-295); Potassium 3.2 mmol/L (3.5-5.1); Sodium 142 mmol/L (136-145); Total Protein 8.2 g/dL (6.4-8.2)
[2021-09-28] VITALS (15 sets, daily range): BP systolic 142–147; BP diastolic 93–100; PULSE 97–109; RESP 0–25; O2SAT 99–100
[2021-09-28 00:14] LABS: Lactic Acid 1.6 mmol/L (0.4-2.0)
--- NOTE | 2021-09-28 00:30 | PC.NURSE ---
Call placed to [facility] at [facility] for possible transfer, will await call back from [facility].
--- NOTE | 2021-09-28 00:33 | ED.GENADULT ---
HPI - General Adult General Chief complaint: Anxiety Stated complaint: not sleeping,possible fever Source: patient and family History of Present Illness HPI narrative: This is a 31 old female presenting to the ED with 1 hour of severe restlessness. Per the patient's father over the last several days she has not been sleeping. She was on a get away with her boyfriend. Earlier today she came to the house was acting erratically. She was unable to sit still. The patient's mother became concerned and called the father home from work. Patient states that she was having severe anxiety. She was unable to stay still. While she initially denied any drug use since that she had been clean from 2019 she later admitted to smoking marijuana earlier today. She does not know if it is laced w/ anything. She denies crack cocaine or methamphetamine use. She denies opiate use. patient is complaining of diaphoresis, and feeling of intense anxiety. She is denying any chest pain, difficulty breathing, abdominal pain, urinary symptoms Related Data Home Medications Medication Instructions Recorded Confirmed lisinopril 10 mg tablet 10 mg PO DAILY 04/10/19 02/19/20 trazodone 50 mg tablet 50 mg PO HS PRN Sleep 04/10/19 02/19/20 venlafaxine 37.5 mg 225 mg PO DAILY 04/10/19 02/19/20 capsule,extended release 24 hr (Effexor XR) divalproex 250 mg tablet,delayed 250 mg PO BID 12/02/19 02/19/20 release rizatriptan 10 mg tablet 10 mg PO PRN PRN Headache 12/02/19 02/19/20 tizanidine 4 mg tablet 4 mg PO PRN PRN Muscle Spasm 12/02/19 02/19/20 amitriptyline 75 mg tablet 75 mg PO HS 12/03/19 02/19/20 Allergies Allergy/AdvReac Type Severity Reaction Status Date / Time No Known Allergies Allergy Unverified 03/07/17 06:25 Review of Systems Constitutional: Constitutional: Denies chills Eyes: Eyes: Reports no additional eye complaints ENT: Denies vertigo Cardiovascular: Cardiovascular: Denies chest pain and Reports rapid heart rate Respiratory: Respiratory: Denies chest congestion Gastrointestinal: Gastrointestinal: Denies abdominal pain Genitourinary: Genitourinary: Denies abnormal vaginal bleeding Musculoskeletal: Musculoskeletal: Reports back pain and Denies myalgias Integumentary/Breasts: Skin/Breast: Denies rash Neurologic: Reports confusion Psychiatric: Psychiatric: Reports anxiety, Reports depression, Denies homicidal ideation and Denies suicidal ideation Endocrine: Endocrine: Reports excessive sweating Hematologic/Lymphatic: Hematologic/Lymphatic: Denies easy bleeding Allergic/Immunologic: Allergic/Immunologic: Denies lip swelling PMFSH Past Medical History Medical History ARDS (adult respiratory distress syndrome) (~12/03/19) Aspiration pneumonitis (~12/03/19) Depression Fentanyl dependence 4 Para 2 with 3 children (twins) and 2 miscarriages HTN (hypertension) Surgical History Surgical History Hx of section Hx of cholecystectomy Hx of tonsillectomy Hx of wisdom tooth extraction Family History Family History Grandparent Cerebrovascular accident Diabetes mellitus Mother Hypertension Other Family history of allergic disorder Social History Social History Social History: Patient admits to smoking marijuana. Drug use as mentioned above although denies any prior history drug use. She smokes half a pack a day the past 5-6 years. Rarely drinks alcohol. She lives at home with her mother, father and 3 children. She is a full code. Her father is the individual would make medical decisions for her if she is not able. Years smoked: 7 Smoking status: Light tobacco smoker Tobacco type: cigarettes Second hand tobacco smoke exposure: Yes Alcohol intake: never Drinks pe
[2021-09-28] MEDS: ETOMIDATE 20 MG/10 ML AMPUL IV PUSH (00:42)
[2021-09-28] MEDS: ROCURONIUM BROMIDE 50 MG/5 ML VIAL 100 MG IV PUSH (00:42)
[2021-09-28] MEDS: PROPOFOL IV EMULSION 100 ML 12 MG IV CONT (00:45)
--- NOTE | 2021-09-28 00:48 | PC.NURSE ---
ET 23 at teeth
[2021-09-28 00:51] LABS: Base Excess ABG -2.2 mmol/L (0-2); HCO3 ABG 24.4 mmol/L (23-29); Modified Allen's Test Pass; Oxygen Content ABG 17.2 %vol (16.0-22.0); Oxygen Saturation ABG 96.4 % (95-97); Oxyhemoglobin 94.5 % (94-100); PO2 ABG 93.5 mmHg (80-90); Site Drawn LEFT RADIAL; Total Hemoglobin 12.9 g/dL (12.0-18.0); pH ABG 7.32 (7.35-7.45)
[2021-09-28 00:52] LABS: Device VENTILATOR
[2021-09-28 01:43] LABS: Add Urine Microscopic? YES; Appearance Urine Clear (Clear); Bacteria Urine 2+ /hpf; Bilirubin Urine 1+ (Negative); Blood Urine 1+ (Negative); Calcium Oxalate Crystals Urine Present /hpf; Color Urine Dark Yellow (Yellow); Glucose Urine UA Negative (Negative); Ketones Urine 2+ (Negative); Leukocyte Esterase Ur Trace (Negative); Nitrate Urine Negative (Negative); Protein Urine 1+ (Negative); Specific Grav Ur >= 1.030 (1.010-1.020); Squamous Epithelial Cell Urine Moderate /hpf (Few); pH Urine 5.5 (5.0-8.0)
[2021-09-28] MEDS: LORazepam INJ (*CRX) 2 MG/ML VIAL IV PUSH (02:39)
[2021-09-28] MEDS: fentaNYL CITRATE INJ (*CRX) 100 MCG/2 ML VIAL IV PUSH (02:40)
--- NOTE | 2021-09-28 04:15 | PC.NURSE ---
RN required to accompany transport, no issues in transport
--- NOTE | 2021-09-28 04:21 | PC.NURSE ---
pt transfers with [facility] parker
== END 2021-09-28 03:15 | disposition short-term general hospital (02) ==
PROVIDERS: Emergency Provider Emergency Medicine; PCP Internal Medicine
DX: R45.1 Restlessness and agitation (principal); F19.90 Other psychoactive substance use, unspecified, uncomplicated; J96.90 Respiratory failure, unspecified, unspecified whether with hypoxia or hypercapnia; N39.0 Urinary tract infection, site not specified; D72.829 Elevated white blood cell count, unspecified; I10 Essential (primary) hypertension; E87.6 Hypokalemia; R00.0 Tachycardia, unspecified; F17.210 Nicotine dependence, cigarettes, uncomplicated; F32.A Depression, unspecified; F11.21 Opioid dependence, in remission
CPT/HCPCS: 31500; 36415; 36600; 70450; 71045; 80053; 80307; 81001; 81025; 82550; 82805; 83605; 84443; 85027; 87077; 87086; 87088; 87186; 93005; 96361; 96374; 96375; 96376; 99291; J2060; J2704; J3010; J7030

== ENCOUNTER 2021-09-28 03:15 | Inpatient (IN) | payer OTHER, SELFPAY ==
[2021-09-28] VITALS (29 sets, daily range): BP systolic 113–166; BP diastolic 60–107; PULSE 72–114; RESP 16–32; TEMP 36.6–37.1; O2SAT 96–100; BMI 34.9
--- NOTE | ~2021-09-28 | XR_ITS ---
EXAMINATION: XR chest ET placement DATE: 09/28/2021 07:00 INDICATION: Repositioned endotracheal tube. TECHNIQUE: A single frontal view of the chest was obtained. COMPARISON: Chest single view at 4:02 AM FINDINGS: There is mild atelectasis in left lower lung zone. No pleural effusion or pneumothorax. The heart size is normal. The endotracheal tube tip is 10 mm above the karon. The nasogastric tube tip is beyond the inferior margin of the radiograph, but at least to the stomach. IMPRESSION: 1. Endotracheal tube tip 10 mm above the karon. 2. Mild atelectasis in left lower lung zone. Reviewed, dictated and finalized at location A.
--- NOTE | ~2021-09-28 | XR_ITS ---
XR chest 1V portable DATE: 09/29/2021 06:03 INDICATION: ET tube positioning TECHNIQUE: Portable AP chest on 09/29/2021 at 0530 hours COMPARISON: 09/28/2021 portable AP chest at 0654 hours FINDINGS: ET tube tip is 1.6 cm above karon; ideal range is 2-5 cm. NG tube extends into the distal stomach, the distal tip beyond the lower margin of the radiograph. Size. Mild atelectasis in the lower lung zones. Lungs otherwise appear clear. No pleural effusion, pu lmonary vascular congestion or pneumothorax is detected. IMPRESSION: ET tube tip 1.6 cm above karon NG tube extends at least to the distal stomach Mild atelectasis at lung bases Reviewed, dictated and finalized at location A.
--- NOTE | ~2021-09-28 | XR_ITS ---
XR chest 1V portable DATE: 09/30/2021 05:31 INDICATION: Respiratory failure TECHNIQUE: Portable upright AP chest on 09/30/2021 at 0525 hours COMPARISON: 09/29/2021 portable AP chest at 0530 hours FINDINGS: Interval removal of ET and NG tubes since 09/29/2021. Normal heart size. No hilar or mediastinal enlargement. Minimal atelectasis in the right lower lung. The lungs otherwise appear clear. No pleural effusion, O congestion or pneumothorax. IMPRESSION: Minimal right basilar atelectasis Reviewed, dictated and finalized at location A.
--- NOTE | ~2021-09-28 | XR_ITS ---
EXAMINATION: XR chest 1V portable DATE: 09/28/2021 04:12 INDICATION: Intubation. TECHNIQUE: A single frontal view of the chest was obtained. COMPARISON: Chest single view at 12:28 AM FINDINGS: There is mild atelectasis in left lower lung zone. No pleural effusion or pneumothorax. The heart size is normal. The endotracheal tube tip is at the level of the karon directed toward the le ft mainstem bronchus. The nasogastric tube tip is in the stomach. Surgical clips in the right upper q uadrant are likely from cholecystectomy. IMPRESSION: 1. Endotracheal tube tip at the level of the karon. Retraction 2 cm is recommended. Reviewed, dictated and finalized at location A. IMPRESSION: 1. Endotracheal tube tip at the level of the karon. Retraction 2 cm is recomme nded.
--- NOTE | ~2021-09-28 | US_ITS ---
EXAMINATION: US abdomen limited DATE: 09/28/2021 11:29 INDICATION: Elevated liver enzymes TECHNIQUE: Multiple grayscale and Doppler ultrasound images of the abdomen were obtained. COMPARISON: Ultrasound dated 02/20/2017 FINDINGS: Pancreas is normal. The visualized proximal to mid inferior vena cava is normal. Liver has normal ech ogenicity and contour, with a smooth surface. No liver lesion identified. No intrahepatic biliary benny t dilation suspected. Portal venous flow was seen in the hepatopetal, normal direction and has normal Doppler waveform. Gallbladder is nonvisualized and reportedly surgically absent. The common bile benny t measures up to 10 mm in maximal diameter and which appears to taper distally the head of the pancre as with no evident obstructing stone or mass which may be related to prior cholecystectomy. IMPRESSION: 1. Dilation common bile duct to 10 mm without intrahepatic biliary ductal dilation and which tapers d istally with no evident obstructing stone or mass and which may be related to prior cholecystectomy. MRI/MRCP could be obtained for further evaluation as clinically indicated. Reviewed, dictated and finalized at location B. IMPRESSION: 1. Dilation common bile duct to 10 mm without intrahepatic biliary ductal dilat ion and which tapers distally with no evident obstructing stone or mass and whi ch may be related to prior cholecystectomy. MRI/MRCP could be obtained for furt her evaluation as clinically indicated.
--- NOTE | 2021-09-28 03:48 | PM.IMHP ---
H&P: HPI History of Present Illness Date/Time: 09/28/21 03:48 Chief Complaint: ALTERED MENTAL STATUS Narrative: This is a 31-year-old female with past medical history significant for tobacco dependence, fentanyl dependence, multiple drug overdose, depression, obesity. Patient presents to the emergency room at outside hospital due to altered mental status agitation, delirium, ultimately patient require IV sedation subsequently patient became nonresponsive requiring intubation and ventilator support. Patient has been her usual state of health up until this moment a urinalysis toxicology screen showed positive cannabis, opiates and benzos. Patient was transferred to our facility to intensive care unit. Review of Systems Review of Systems: ROS unobtainable: Yes unobtainable due to mental status PMFSH Past Medical History Medical History ARDS (adult respiratory distress syndrome) (~12/03/19) Aspiration pneumonitis (~12/03/19) Depression Fentanyl dependence 4 Para 2 with 3 children (twins) and 2 miscarriages HTN (hypertension) Surgical History Surgical History Hx of section Hx of cholecystectomy Hx of tonsillectomy Hx of wisdom tooth extraction Family History Family History Grandparent Cerebrovascular accident Diabetes mellitus Mother Hypertension Other Family history of allergic disorder Social History Social History Social History: Patient admits to smoking marijuana. Drug use as mentioned above although denies any prior history drug use. She smokes half a pack a day the past 5-6 years. Rarely drinks alcohol. She lives at home with her mother, father and 3 children. She is a full code. Her father is the individual would make medical decisions for her if she is not able. Years smoked: 7 Smoking status: Light tobacco smoker Tobacco type: cigarettes Second hand tobacco smoke exposure: Yes Alcohol intake: never Drinks per week: 0 Substance use: current Substance use type: marijuana Other substance usage details: patient admits to buying fentanyl off the street Gender identity (if verbalized by the patient): Female Sexual Orientation (if Verbalized by the Patient): Straight or Heterosexual Spiritual care concerns: No Agree to blood products: Yes Meds Home Medications and Allergies Home Medications Medication Instructions Recorded Confirmed Type lisinopril 10 mg tablet 10 mg PO DAILY 04/10/19 02/19/20 History trazodone 50 mg tablet 50 mg PO HS PRN Sleep 04/10/19 02/19/20 History venlafaxine 37.5 mg 225 mg PO DAILY 04/10/19 02/19/20 History capsule,extended release 24 hr (Effexor XR) divalproex 250 mg tablet,delayed 250 mg PO BID 12/02/19 02/19/20 History release rizatriptan 10 mg tablet 10 mg PO PRN PRN Headache 12/02/19 02/19/20 History tizanidine 4 mg tablet 4 mg PO PRN PRN Muscle Spasm 12/02/19 02/19/20 History amitriptyline 75 mg tablet 75 mg PO HS 12/03/19 02/19/20 History albuterol sulfate 90 mcg/actuation 2 inhalation inhalation Q4-6H PRN 12/07/19 02/19/20 Rx aerosol inhaler shortness of breath or wheezing #8.5 grams Allergies Allergy/AdvReac Type Severity Reaction Status Date / Time No Known Allergies Allergy Unverified 03/07/17 06:25 Exam Narrative: Patient is laying in bed on ventilator support Const: General: comfortable and other (On ventilator support comatose) Nutritional Appearance: overweight Orientation/consciousness: Other orientation findings (Comatose) HENMT: Head: normal to inspection, normocephalic and atraumatic Face and sinus: normal facial exam Other: ETT in place Eyes: General: appearance normal, both eyes and all related structures Pupils: Equal, round and reactive pupils pres
--- NOTE | 2021-09-28 04:00 | ADMGEN ---
This patient, Gina Lyn, was admitted to Intensive Care Unit-6. Patient/family oriented to hospital policies and general routines including ID bracelet, bed and alarms, visiting hours, pain management, procedures, bathroom and other care routines, personal items, smoking policy, room service/diet, and visiting hours. Information on how to activate the Rapid Response Team has been discussed. Patient/Family are encouraged to report perceived risks to care and to ask questions if they do not understand what they are told or what they should do.
[2021-09-28 04:24] LABS: Basophils Absolute Auto 0.1 K/mm3 (0.0-0.1); Basophils Percent Auto 0.5 % (0.2-1.2); Eosinophils Absolute Auto 0.2 K/mm3 (0-0.3); Eosinophils Percent Auto 1.7 % (0-4.4); Hemoglobin 12.2 g/dL (12.0-15.0); Immature Granulocyte Absolute 0.03 K/mm3 (0.00-0.031); Immature Granulocyte Percent A 0.3 % (0-0.5); Lymphocytes Absolute Auto 2.12 K/mm3 (0.9-3.2); Lymphocytes Percent Auto 21.1 % (18.3-44.2); Mean Corpuscular HGB Conc 33.9 g/dl (32-36); Mean Corpuscular Hemoglobin 33.2 pg (26-34); Mean Corpuscular Volume 98.1 fl (80-100); Mean Platelet Volume 10.1 fl (7.4-10.4); Monocytes Absolute Auto 1.1 K/mm3 (0.1-0.6); Monocytes Percent Auto 10.4 % (2.6-8.5); Neutrophils Absolute Auto 6.6 K/mm3 (1.3-6.7); Platelet Count Result 234 k/mm3 (150-375); Red Blood Count 3.67 M/mm3 (4.2-5.4); Red Cell Distribution Width 12.7 % (11.5-14.5); White Blood Count 10.1 K/mm3 (4.5-10.0)
[2021-09-28 04:32] LABS: Alanine Aminotransferase 120 U/L (6-35); Albumin Level 4.1 g/dL (3.5-5.1); Alkaline Phosphatase 181 U/L (38-126); Anion Gap 8 mmol/L (8-16); Aspartate Amino Transferase 74 U/L (14-36); Bilirubin,Total 1.3 mg/dL (0.2-1.3); Blood Urea Nitrogen 8 mg/dL (7-17); Calcium 8.6 mg/dL (8.4-10.2); Carbon Dioxide 23 mmol/L (22-30); Chloride 109 mmol/L (98-107); Estimated CRCL calculation 123 ml/min; Estimated Glomerular Filt Rate > 60; Glucose 116 mg/dL (65-110); Phosphorus 2.8 mg/dL (2.5-4.5); Potassium 3.4 mmol/L (3.4-5.0); Sodium 140 mmol/L (137-145)
[2021-09-28 04:59] LABS: Alveolar/Arterial O2 Gradient 98.1 mmHg; Fractional Inspired Oxygen 35 %; HCO3 ABG 22.9 mEq/l (22.0-26.0); Methemoglobin ABG 0.4 %THb (0-1.5); Oxygen Content ABG 23.4 %vol (16.0-22.0); Oxygen Saturation ABG 98.4 % (95.0-100.0); Oxyhemoglobin 96.5 % THb (90.0-100.0); PCO2 ABG 32.8 mmHg (35.0-45.0); PO2 ABG 113.3 mmHg (80.0-100.0); PO2 FiO2 Ratio Arterial Blood 3.24 %; Reduced Hemoglobin 2.1 %THb (0-5.0); Total Hemoglobin 17.2 g/dL (12.0-18.0); pH ABG 7.461 (7.350-7.450)
[2021-09-28 05:00] LABS: Arterial Blood Gas PEEP 5 cmH2O; Arterial Blood Gas Tidal Volume 450 ml; Arterial Blood Gas Vent Mode CMV; Arterial Blood Gas Ventilator rate 18 /MIN; Device VENTILATOR; Modified Allen's Test Pass; Site Drawn LEFT RADIAL
[2021-09-28] MEDS: PROPOFOL IV EMULSION 100 ML 18.18 MG IV CONT (05:09)
[2021-09-28] MEDS: SUCRALFATE SUSP 100 MG/ML 10 ML UDC 1000 MG FEED TUBE ×4 (05:11→23:05)
[2021-09-28] MEDS: DEXTROSE 5%/0.45% SOD CHL 1,000 ML 75 ML IV CONT ×2 (05:16→18:45)
--- NOTE | 2021-09-28 08:17 | ECG_ITS ---
Measurements Intervals [place] Rate: 92 P: 49 HI: 137 QRS: 51 QRSD: 91 T: 25 QT: 375 QTc: 466 Interpretive Statements SINUS RHYTHM BORDERLINE ST-T WAVE ABNORMALITY- ANTEROLAT/INF LEADS BORDERLINE ECG Electronically Signed On 09-28-2021 18:32:13 CDT by Navdeep Colmenares D.O.
--- NOTE | 2021-09-28 08:17 | WPDCNINT ---
Assessment and Plan Assessment and plan (1) Respiratory failure: Code(s): J96.90 - Respiratory failure, unspecified, unspecified whether with hypoxia or hypercapnia Status: Acute Assessment and Plan: Acute Respiratory failure secondary to drug abuse and sedative Patient now intubated and on mechanical ventilation Continue full mechanical ventilation support to prevent hypoxemia/hypercarbia and end organ damage. ABG reviewed I will decrease tidal volume to 400 and rate to 16 Chest x-ray reviewed. ETT was withdrawn after last chest x-ray Low tidal volume ventilation strategy to prevent volutrauma Perform sedation holiday later this afternoon and assess for extubation Bronchodilators (2) Polysubstance use disorder: Code(s): F19.90 - Other psychoactive substance use, unspecified, uncomplicated Status: Acute Assessment and Plan: Patient has history of polysubstance abuse. She admitted to smoking marijuana prior to presentation to the ER and was not sure whether it was laced with something else. Urine drug screen was positive for benzodiazepines opioids and cannabinoids Continue supportive treatment as patient is currently sedated EKG reviewed and will repeat at this time Head CT was negative Hold sedatives Check Tylenol and salicylate levels (3) UTI (urinary tract infection): Code(s): N39.0 - Urinary tract infection, site not specified Status: Acute Assessment and Plan: UA suggests UTI Urine culture sent WBC elevated but patient is afebrile ICU Start empiric Rocephin (4) Depression: Code(s): F32.9 - Major depressive disorder, single episode, unspecified Status: Chronic Assessment and Plan: Hold venlafaxine at this time and resume once patient is extubated (5) HTN (hypertension): Code(s): I10 - Essential (primary) hypertension Status: Acute Assessment and Plan: Hold lisinopril at this time as per his in controlled range patient being on propofol (6) Elevated liver enzymes: Code(s): R74.8 - Abnormal levels of other serum enzymes Status: Acute Assessment and Plan: Patient has elevated alkaline phosphatase ALT and AST consistent with cholestatic pattern Check right upper quadrant ultrasound Check Tylenol level Monitor Additional Plan DVT prophylaxis -Lovenox Stress ulcer prophylaxis -Pepcid Nutrition -NPO Code Status - Full Code Total Critical Care Time - 32 minutes Due to a high probability of clinically significant, life threatening deterioration, the patient required my highest level of preparedness to intervene emergently and I personally spent this critical care time directly and personally managing the patient. This critical care time included obtaining a history; examining the patient; pulse oximetry; ordering and review of studies; arranging urgent treatment with development of a management plan; evaluation of patient's response to treatment; frequent reassessment; and discussions with other providers. It was exclusive of separately billable procedures and treating other patients and teaching time. Please see Assessment and Plan section and the rest of the note for further information on patient assessment and treatment School Counsellor Consult Note Consult date: 09/28/21 Reason for consult: Acute respiratory failure, drug abuse, altered mental status HPI: Gina Lyn is a 31 year old female with past medical history significant for anxiety, tobacco dependence, fentanyl dependence, multiple drug abuse and overdose, depression, obesity presented to start ER with chief complaint of restlessness and inability to sleep. She was admitted in 2019 with fentanyl overdose and aspiration pneumonia leading to acute respiratory failure. Patient admitted to smoking marijuana but was not sure whether it was laced with anything. She denies any drug use since 2019 the ED physician including cocaine or methamphetamine patient was
[2021-09-28] MEDS: PROPOFOL IV EMULSION 100 ML 24.24 MG IV CONT ×3 (08:41→18:46)
[2021-09-28] MEDS: POTASSIUM CHLORIDE 20 MEQ PACKET (FOR LIQUID) 40 MEQ FEED TUBE (08:42)
[2021-09-28] MEDS: ENOXAPARIN 40 MG/0.4 ML SYRINGE SUB-Q (08:43)
[2021-09-28] MEDS: FAMOTIDINE 20 MG/2 ML VIAL IV PUSH ×2 (08:44→20:33)
[2021-09-28] MEDS: MINERAL OIL/WHITE PETROLATUM OINTMENT 1 APPLIC EACH EYE ×2 (08:45→20:33)
[2021-09-28] MEDS: DIVALPROEX SODIUM SPRINKLE 125 MG CAP.DR FEED TUBE ×3 (08:52→20:33)
[2021-09-28] MEDS: cefTRIAXone 2 GM in SODIUM CHLORIDE 0.9% IV 100 ML 200 ML IVPB (08:52)
[2021-09-28 09:53] LABS: Acetaminophen < 10 ug/mL (10-30); Salicylate < 1.0 mg/dL (2-20)
[2021-09-28] MEDS: LABETALOL HCL INJ 100 MG/20 ML VIAL 20 MG IV PUSH (12:18)
[2021-09-28] MEDS: dexmedeTOMIDine 400 MCG/100 ML 400 MCG/100 ML BAG 5.05 MCG IV CONT (12:19)
[2021-09-28] MEDS: PROPOFOL IV EMULSION 100 ML 30.3 MG IV CONT ×2 (15:33→23:05)
[2021-09-28] MEDS: dexmedeTOMIDine 400 MCG/100 ML 400 MCG/100 ML BAG 17.68 MCG IV CONT (21:41)
[2021-09-29] VITALS (19 sets, daily range): BP systolic 116–150; BP diastolic 60–98; PULSE 68–98; RESP 16–30; TEMP 36.2–36.8; O2SAT 96–100; BMI 37.1
[2021-09-29] MEDS: dexmedeTOMIDine 400 MCG/100 ML 400 MCG/100 ML BAG 20.2 MCG IV CONT (02:15)
[2021-09-29] MEDS: PROPOFOL IV EMULSION 100 ML 30.3 MG IV CONT ×2 (02:16→05:22)
[2021-09-29 03:58] LABS: Hematocrit 32.5 % (37.0-47.0); Hemoglobin 11.7 g/dL (12.0-15.0); Mean Corpuscular Hemoglobin 33.5 pg (26-34); Mean Corpuscular Volume 93.1 fl (80-100); Mean Platelet Volume 9.9 fl (7.4-10.4); Platelet Count Result 189 k/mm3 (150-375); Red Blood Count 3.49 M/mm3 (4.2-5.4); Red Cell Distribution Width 12.6 % (11.5-14.5); White Blood Count 6.8 K/mm3 (4.5-10.0)
[2021-09-29 04:16] LABS: Alanine Aminotransferase 85 U/L (6-35); Albumin Level 3.4 g/dL (3.5-5.1); Alkaline Phosphatase 142 U/L (38-126); Anion Gap 4 mmol/L (8-16); Aspartate Amino Transferase 44 U/L (14-36); Bilirubin,Total 0.6 mg/dL (0.2-1.3); Blood Urea Nitrogen 3 mg/dL (7-17); Calcium 8.3 mg/dL (8.4-10.2); Carbon Dioxide 25 mmol/L (22-30); Chloride 109 mmol/L (98-107); Estimated CRCL calculation 166 ml/min; Estimated Glomerular Filt Rate > 60; Glucose 129 mg/dL (65-110); Sodium 138 mmol/L (137-145)
[2021-09-29] MEDS: DIVALPROEX SODIUM SPRINKLE 125 MG CAP.DR FEED TUBE ×4 (05:04→21:39)
[2021-09-29] MEDS: SUCRALFATE SUSP 100 MG/ML 10 ML UDC 1000 MG FEED TUBE ×2 (05:05→17:13)
[2021-09-29 05:55] LABS: Alveolar/Arterial O2 Gradient 83.3 mmHg; Base Excess ABG 1.4 mEq/l (+/-2.0); Carboxyhemoglobin 0.3 % THb (0-2.0); Fractional Inspired Oxygen 30 %; HCO3 ABG 25.2 mEq/l (22.0-26.0); Methemoglobin ABG 0.4 %THb (0-1.5); Oxygen Content ABG 17.5 %vol (16.0-22.0); Oxyhemoglobin 95.3 % THb (90.0-100.0); PO2 ABG 87.1 mmHg (80.0-100.0); pH ABG 7.451 (7.350-7.450)
[2021-09-29 05:56] LABS: Arterial Blood Gas PEEP 5 cmH2O; Arterial Blood Gas Vent Mode CMV; Arterial Blood Gas Ventilator rate 16 /MIN; Device VENTILATOR; Modified Allen's Test Unable to perform; Site Drawn RIGHT RADIAL
[2021-09-29 05:57] LABS: Arterial Blood Gas Tidal Volume 400 ml
[2021-09-29] MEDS: POTASSIUM CHLORIDE INJ 40 MEQ in SODIUM CHLORIDE 0.9% IV 500 ML 130 MEQ IVPB (07:41)
--- NOTE | 2021-09-29 07:58 | WPDINTPN ---
Progress Note: A&P Assessment and Plan (1) Respiratory failure: Code(s): J96.90 - Respiratory failure, unspecified, unspecified whether with hypoxia or hypercapnia Status: Inactive Assessment and Plan: Acute Respiratory failure secondary to drug abuse and sedative Patient now intubated and on mechanical ventilation Patient placed on weaning trial. If successful we will try to extubate the patient ABG reviewed Chest x-ray reviewed. Low tidal volume ventilation strategy to prevent volutrauma Bronchodilators (2) Polysubstance use disorder: Code(s): F19.90 - Other psychoactive substance use, unspecified, uncomplicated Status: Inactive Assessment and Plan: Patient has history of polysubstance abuse. She admitted to smoking marijuana prior to presentation to the ER and was not sure whether it was laced with something else. Urine drug screen was positive for benzodiazepines opioids and cannabinoids Continue supportive treatment as patient is currently sedated EKG reviewed and will repeat at this time Head CT was negative Hold sedatives Negative Tylenol and salicylate levels (3) UTI (urinary tract infection): Code(s): N39.0 - Urinary tract infection, site not specified Status: Inactive Assessment and Plan: UA suggests UTI Urine culture sent WBC was elevated elevated on presentation it now has normalized Patient is afebrile Continue empiric Rocephin (4) Depression: Code(s): F32.9 - Major depressive disorder, single episode, unspecified Status: Chronic Assessment and Plan: Hold venlafaxine at this time and resume once patient is extubated (5) HTN (hypertension): Code(s): I10 - Essential (primary) hypertension Status: Acute Assessment and Plan: Hold lisinopril at this time as per his in controlled range patient being on propofol (6) Elevated liver enzymes: Code(s): R74.8 - Abnormal levels of other serum enzymes Status: Acute Assessment and Plan: Patient has elevated alkaline phosphatase ALT and AST consistent with cholestatic pattern Right upper quadrant ultrasound showed 1. Dilation common bile duct to 10 mm without intrahepatic biliary ductal dilation and which tapers distally with no evident obstructing stone or mass and which may be related to prior cholecystectomy. MRI/MRCP could be obtained for further evaluation as clinically indicated. Normal Tylenol level Monitor (7) Hypokalemia: Code(s): E87.6 - Hypokalemia Status: Acute Assessment and Plan: Potassium replacement ordered Additional Plan DVT prophylaxis -Lovenox Stress ulcer prophylaxis -Pepcid Nutrition -NPO at this time Code Status - Full Code Total Critical Care Time - 30 minutes Due to a high probability of clinically significant, life threatening deterioration, the patient required my highest level of preparedness to intervene emergently and I personally spent this critical care time directly and personally managing the patient. This critical care time included obtaining a history; examining the patient; pulse oximetry; ordering and review of studies; arranging urgent treatment with development of a management plan; evaluation of patient's response to treatment; frequent reassessment; and discussions with other providers. It was exclusive of separately billable procedures and treating other patients and teaching time. Please see Assessment and Plan section and the rest of the note for further information on patient assessment and treatment Subjective Date/time seen: 09/29/21 07:58 Overnight events reviewed. Afebrile Continues to be on mechanical ventilation Continues to be sedated with propofol and Precedex Vitals acceptable Review of Systems Review of Systems: ROS unobtainable: Yes unobtainable due to endotracheal tube and unobtainable due to mental status Exam Narrative: General: Pt is sedated, intubated and on mechan
[2021-09-29] MEDS: POTASSIUM CHLORIDE 20 MEQ PACKET (FOR LIQUID) 40 MEQ FEED TUBE (08:14)
[2021-09-29] MEDS: MINERAL OIL/WHITE PETROLATUM OINTMENT 1 APPLIC EACH EYE ×2 (08:15)
[2021-09-29] MEDS: ENOXAPARIN 40 MG/0.4 ML SYRINGE SUB-Q (08:15)
[2021-09-29] MEDS: FAMOTIDINE 20 MG/2 ML VIAL IV PUSH ×2 (08:15→21:38)
[2021-09-29 08:49] LABS: Alveolar/Arterial O2 Gradient 108.6 mmHg; Base Excess ABG 1.6 mEq/l (+/-2.0); Fractional Inspired Oxygen 30 %; HCO3 ABG 25.8 mEq/l (22.0-26.0); Oxygen Content ABG 18.8 %vol (16.0-22.0); Oxygen Saturation ABG 91.4 % (95.0-100.0); Oxyhemoglobin 89.5 % THb (90.0-100.0); PCO2 ABG 39.4 mmHg (35.0-45.0); PO2 FiO2 Ratio Arterial Blood 1.97 %; pH ABG 7.434 (7.350-7.450)
[2021-09-29 08:52] LABS: Device VENTILATOR; Modified Allen's Test Pass; Site Drawn LEFT RADIAL
[2021-09-29 08:53] LABS: Arterial Blood Gas PEEP 5 cmH2O; Arterial Blood Gas Pressure Support 8 cmH2O; Arterial Blood Gas Vent Mode SPONTANEOUS; Arterial Blood Gas Ventilator rate 0 /MIN; Peak Inspiratory Pressure 0 cmH2O
[2021-09-29] MEDS: cefTRIAXone 2 GM in SODIUM CHLORIDE 0.9% IV 100 ML 200 ML IVPB (10:05)
--- NOTE | 2021-09-29 10:56 | PM.IMPN ---
Progress Note: A&P Assessment and Plan (1) Respiratory failure: Code(s): J96.90 - Respiratory failure, unspecified, unspecified whether with hypoxia or hypercapnia Status: Inactive Assessment and Plan: Extubated. Secondary to accidental drug overdose. No SI or HI (2) Polysubstance use disorder: Code(s): F19.90 - Other psychoactive substance use, unspecified, uncomplicated Status: Inactive Assessment and Plan: Denies SI or HI. (3) UTI (urinary tract infection): Code(s): N39.0 - Urinary tract infection, site not specified Status: Inactive Assessment and Plan: Continue antibiotics (4) Depression: Code(s): F32.9 - Major depressive disorder, single episode, unspecified Status: Chronic Assessment and Plan: Denies any suicidal ideation. (5) HTN (hypertension): Code(s): I10 - Essential (primary) hypertension Status: Acute Assessment and Plan: Monitor (6) Elevated liver enzymes: Code(s): R74.8 - Abnormal levels of other serum enzymes Status: Acute Assessment and Plan: Monitor (7) Hypokalemia: Code(s): E87.6 - Hypokalemia Status: Acute Assessment and Plan: Potassium replacement ordered Additional Plan DVT prophylaxis -Lovenox Stress ulcer prophylaxis -Pepcid Nutrition -NPO at this time Code Status - Full Code Total Critical Care Time - 30 minutes Due to a high probability of clinically significant, life threatening deterioration, the patient required my highest level of preparedness to intervene emergently and I personally spent this critical care time directly and personally managing the patient. This critical care time included obtaining a history; examining the patient; pulse oximetry; ordering and review of studies; arranging urgent treatment with development of a management plan; evaluation of patient's response to treatment; frequent reassessment; and discussions with other providers. It was exclusive of separately billable procedures and treating other patients and teaching time. Please see Assessment and Plan section and the rest of the note for further information on patient assessment and treatment Subjective Date/time seen: 09/29/21 10:56 Extubated. No SI or HI. Exam Narrative: General: Pt is sedated, intubated and on mechanical ventilation Lungs/Chest: Trachea central Coarse BS B/L, No crackles or wheezing. Cardiac: RRR. Normal S1 S2. No murmurs Circulation: Pedal pulses are intact and symmetrical. Abdomen: Decreased bowel sounds. Obese. Soft. NT. ND. Extremities: No clubbing, cyanosis or edema. Warm : Sidhu in place Neurologic: Unable to assess due to sedation. PERRL on holding sedation patient follows commands and moves all 4 extremities Const: General: comfortable and other (On ventilator support comatose) Nutritional Appearance: overweight Orientation/consciousness: Other orientation findings (Comatose) HENMT: Head: normal to inspection, normocephalic and atraumatic Face and sinus: normal facial exam Other: ETT in place Eyes: General: appearance normal, both eyes and all related structures Pupils: Equal, round and reactive pupils present and Pupil size comments bilaterally 1 EOM: EOMs intact bilaterally Neck: Neck: full ROM, no lymphadenopathy and no JVD Thyroid: thyroid normal Lymphatic: no lymphadenopathy noted Resp: Effort & Inspection: no audible wheezes, no respiratory distress, not tachypneic and other (On ventilator support) Auscultation: clear to auscultation bilaterally Cardio: Jugular venous distension: no JVD Rate: regular rate Rhythm: regular rhythm Heart sounds: S1 normal heart sound present and S2 normal heart sound present : General: Yes deferred Skin: Rashes: no rashes Wounds: no wounds Neuro: General: CN's II-XI intact bilaterally, Unable to assess gait and other (Facial symmetry) Cranial nerves: Yes CN's II-XII intact bilaterally an
[2021-09-30] VITALS: PULSE 94
[2021-09-30] MEDS: SUCRALFATE SUSP 100 MG/ML 10 ML UDC 1000 MG FEED TUBE ×2 (01:33→06:33)
[2021-09-30] MEDS: DIVALPROEX SODIUM SPRINKLE 125 MG CAP.DR FEED TUBE ×2 (03:47→09:24)
[2021-09-30 04:00] VITALS: PULSE 96
[2021-09-30 04:31] VITALS: BP 124/81; PULSE 87; RESP 18; TEMP 36.8; O2SAT 99
[2021-09-30 05:29] LABS: Hemoglobin 11.9 g/dL (12.0-15.0); Mean Corpuscular Hemoglobin 33.1 pg (26-34); Mean Corpuscular Volume 97.5 fl (80-100); Platelet Count Result 242 k/mm3 (150-375); Red Blood Count 3.59 M/mm3 (4.2-5.4); Red Cell Distribution Width 12.8 % (11.5-14.5); White Blood Count 7.8 K/mm3 (4.5-10.0)
[2021-09-30 05:55] LABS: Alanine Aminotransferase 66 U/L (6-35); Albumin Level 3.6 g/dL (3.5-5.1); Alkaline Phosphatase 135 U/L (38-126); Anion Gap 6 mmol/L (8-16); Aspartate Amino Transferase 34 U/L (14-36); Bilirubin,Total 0.7 mg/dL (0.2-1.3); Blood Urea Nitrogen 3 mg/dL (7-17); Calcium 8.6 mg/dL (8.4-10.2); Carbon Dioxide 25 mmol/L (22-30); Chloride 112 mmol/L (98-107); Estimated CRCL calculation 131 ml/min; Estimated Glomerular Filt Rate > 60; Glucose 97 mg/dL (65-110); Magnesium 1.9 mg/dL (1.6-2.3); Phosphorus 3.2 mg/dL (2.5-4.5); Potassium 3.3 mmol/L (3.4-5.0); Sodium 143 mmol/L (137-145)
[2021-09-30 08:00] VITALS: PULSE 81
[2021-09-30] MEDS: cefTRIAXone 2 GM in SODIUM CHLORIDE 0.9% IV 100 ML 200 ML IVPB (09:24)
[2021-09-30] MEDS: POTASSIUM CHLORIDE 20 MEQ PACKET (FOR LIQUID) 40 MEQ PO (09:24)
[2021-09-30] MEDS: ENOXAPARIN 40 MG/0.4 ML SYRINGE SUB-Q (09:24)
[2021-09-30] MEDS: FAMOTIDINE 20 MG/2 ML VIAL IV PUSH (09:24)
--- NOTE | 2021-09-30 10:16 | PM.DS ---
DS: Admitting Diagnosis Discharge Date September 30, 2021 Admitting Diagnosis Accidental overdose DS: Discharge Diagnosis Discharge Diagnosis (1) Respiratory failure: Code(s): J96.90 - Respiratory failure, unspecified, unspecified whether with hypoxia or hypercapnia Status: Inactive Assessment and Plan: Extubated. Secondary to accidental drug overdose. No SI or HI Patient is stable and okay for discharge. (2) Polysubstance use disorder: Code(s): F19.90 - Other psychoactive substance use, unspecified, uncomplicated Status: Inactive Assessment and Plan: Denies SI or HI. (3) UTI (urinary tract infection): Code(s): N39.0 - Urinary tract infection, site not specified Status: Inactive Assessment and Plan: Continue antibiotics (4) Depression: Code(s): F32.9 - Major depressive disorder, single episode, unspecified Status: Chronic Assessment and Plan: Denies any suicidal ideation. (5) HTN (hypertension): Code(s): I10 - Essential (primary) hypertension Status: Acute Assessment and Plan: Monitor (6) Elevated liver enzymes: Code(s): R74.8 - Abnormal levels of other serum enzymes Status: Acute Assessment and Plan: Monitor (7) Hypokalemia: Code(s): E87.6 - Hypokalemia Status: Acute Assessment and Plan: Potassium replacement ordered DS: Summary Hospital Course Hospital Course: See discharge plan diagnoses Time Spent with Patient Time attestation: Total time spent providing and/or coordinating discharge services: Exam Narrative: General: Pt is sedated, intubated and on mechanical ventilation Lungs/Chest: Trachea central Coarse BS B/L, No crackles or wheezing. Cardiac: RRR. Normal S1 S2. No murmurs Circulation: Pedal pulses are intact and symmetrical. Abdomen: Decreased bowel sounds. Obese. Soft. NT. ND. Extremities: No clubbing, cyanosis or edema. Warm : Sidhu in place Neurologic: Unable to assess due to sedation. PERRL on holding sedation patient follows commands and moves all 4 extremities Const: General: comfortable and other (On ventilator support comatose) Nutritional Appearance: overweight Orientation/consciousness: Other orientation findings (Comatose) HENMT: Head: normal to inspection, normocephalic and atraumatic Face and sinus: normal facial exam Other: ETT in place Eyes: General: appearance normal, both eyes and all related structures Pupils: Equal, round and reactive pupils present and Pupil size comments bilaterally 1 EOM: EOMs intact bilaterally Neck: Neck: full ROM, no lymphadenopathy and no JVD Thyroid: thyroid normal Lymphatic: no lymphadenopathy noted Resp: Effort & Inspection: no audible wheezes, no respiratory distress, not tachypneic and other (On ventilator support) Auscultation: clear to auscultation bilaterally Cardio: Jugular venous distension: no JVD Rate: regular rate Rhythm: regular rhythm Heart sounds: S1 normal heart sound present and S2 normal heart sound present : General: Yes deferred Skin: Rashes: no rashes Wounds: no wounds Neuro: General: CN's II-XI intact bilaterally, Unable to assess gait and other (Facial symmetry) Cranial nerves: Yes CN's II-XII intact bilaterally and Yes Equal, round and reactive pupils present Cognition (Neuro): abnormal cognition (Comatose) Gait exam (Neuro): Unable to assess gait Motor exam (neuro): 5/5 motor strength present throughout Extrem: General: normal to inspection, full ROM, no joint enlargement and no pedal edema DS: Data Data Completed and Pending Labs on day of discharge: Labs from last 24 hours 09/30/21 09/30/21 05:16 05:16 WBC 7.8 RBC 3.59 L Hgb 11.9 L Hct 35.0 L MCV 97.5 MCH 33.1 MCHC 34.0 RDW 12.8 Plt Count 242 MPV 10.0 Sodium 143 Potassium 3.3 L Chloride 112 H Carbon Dioxide 25 Anion Gap 6 L BUN 3 L Creatinine 0.60 L Estim Creat C
== END 2021-09-30 12:15 | disposition home or self-care (01) | DRG 812 ==
LOC: ANHICU 04:42 → ANH3MED 09-30 10:15 → ANHICU 10-03 12:14
PROVIDERS: Internal Medicine; Admitting Provider Internal Medicine; PCP Internal Medicine; Visit Provider Chiropractor
DX: T50.901A Poisoning by unspecified drugs, medicaments and biological substances, accidental (unintentional), initial encounter (principal); J96.00 Acute respiratory failure, unspecified whether with hypoxia or hypercapnia; N39.0 Urinary tract infection, site not specified; F17.210 Nicotine dependence, cigarettes, uncomplicated; F32.9 Major depressive disorder, single episode, unspecified; F19.10 Other psychoactive substance abuse, uncomplicated; R74.8 Abnormal levels of other serum enzymes; I10 Essential (primary) hypertension; E87.6 Hypokalemia
CPT/HCPCS: 36415; 36600; 71045; 76705; 80053; 80307; 82375; 82805; 83050; 83735; 84100; 85025; 85027; 85730; 93005; 94002; 94003; A9270; J0696; J1650; J2704; J3480; J7040

== ENCOUNTER 2022-09-25 00:15 | Day surgery (SDC) | payer OTHER, SELFPAY ==
[2022-09-16 14:33] VITALS: BMI 35.5
[2022-09-25 06:24] VITALS: BP 131/81; PULSE 88; RESP 16; TEMP 36.9; O2SAT 100
[2022-09-25] MEDS: LACTATED RINGERS 1,000 ML 30 ML IV CONT ×2 (06:40→08:53)
[2022-09-25] MEDS: ACETAMINOPHEN 500 MG TABLET 1000 MG PO (06:40)
[2022-09-25] MEDS: KETOROLAC 15 MG/ML VIAL (*BKC) IV PUSH (06:41)
[2022-09-25] MEDS: SCOPOLAMINE 1.5 MG PATCH TRANSDERM (07:11)
--- NOTE | 2022-09-25 07:11 | WPDANESEPPF ---
Anes - Initial Pre Proc Eval Procedure: Operation Date: 09/25/22 07:30 Proposed Procedures p Laparoscopic Bilateral Salpingectomy - Alice Cruz MD s Loop Electrical Excision Procedure - Alice Cruz MD Date/Time: 09/25/22 07:11 Surgeon: Alice Cruz MD Pre Op Diagnosis: desires sterilization, cervical dysplasia Patient Data Age: 32 Gender: F Height: 1.6 m Weight: 92.6 kg Last Vital Signs Temp 98.4 F 09/25/22 06:24 Pulse 88 09/25/22 06:24 Resp 16 09/25/22 06:24 BP 131/81 09/25/22 06:24 Pulse Ox 100 09/25/22 06:24 O2 Del Method Room Air 09/25/22 06:24 Allergies Allergy/AdvReac Type Severity Reaction Status Date / Time No Known Allergies Allergy Unverified 09/25/22 06:54 Home Medications Medication Instructions Recorded Confirmed Type lisinopril 10 mg tablet 10 mg PO DAILY 04/10/19 09/25/22 History venlafaxine 37.5 mg 225 mg PO DAILY 04/10/19 09/25/22 History capsule,extended release 24 hr (Effexor XR) Patient hx anesthesia problems: post op nausea/vomiting (scopolamine patch) Family hx anesthesia problems: none Results Review: All pre-operative results and documents have been reviewed as part of the pre-operative evaluation. [facility] Past Medical History Medical History ARDS (adult respiratory distress syndrome) (~12/03/19) Aspiration pneumonitis (~12/03/19) Depression Fentanyl dependence 4 Para 2 with 3 children (twins) and 2 miscarriages HTN (hypertension) Surgical History Surgical History Hx of section Hx of cholecystectomy Hx of tonsillectomy Hx of wisdom tooth extraction Family History Family History Grandparent Cerebrovascular accident Diabetes mellitus Mother Hypertension Other Family history of allergic disorder Social History Social History Social History: Patient admits to smoking marijuana. Drug use as mentioned above although denies any prior history drug use. She smokes half a pack a day the past 5-6 years. Rarely drinks alcohol. She lives at home with her mother, father and 3 children. She is a full code. Her father is the individual would make medical decisions for her if she is not able. Smoking packs per day: 0.5 Smoking cigarettes per day: 10.0 Years smoked: 10 Smoking pack-years: 5.00 Smoking status: Current every day smoker Tobacco type: cigarettes Second hand tobacco smoke exposure: Yes Alcohol intake: never Drinks per week: 0 Substance use: current Substance use type: marijuana Other substance usage details: EDIBLES Last use: 09/16/22 Gender identity (if verbalized by the patient): Female Sexual Orientation (if Verbalized by the Patient): Straight or Heterosexual Spiritual care concerns: No Agree to blood products: Yes Anes - Eval Final PreProcedure Day of Procedure 09/25/22 07:11 Patient weight: obese Heart: regular rate and rhythm Lungs: clear to auscultation Airway: Mallampati scale class II (upper front chip tooth) Neurological: alert and oriented Last oral intake: >/= 8 hours ASA classification: III Emergent: no Anesthetic plan: proceed Anesthesia type and monitoring: general ETT and standard monitoring Results Review: All pre-operative results and documents have been reviewed as part of the pre-operative evaluation. Informed Consent: The patient's anesthetic plan and its attendant risks and benefits were discussed with the patient/family/POA. Questions were solicited and answers provided to the satisfaction of the patient/family/POA.
--- NOTE | 2022-09-25 07:21 | WPDHPUPDATE1 ---
History and Physical Update Update Date/Time: 09/25/22 07:21 History and Physical has been reviewed, including an updated exam of the patient. There are NO changes in the patient's condition. Risks, benefits, and alternatives have been discussed and questions answered. Patient agrees to proceed with procedure.
[2022-09-25 08:30] VITALS: BP 117/70; PULSE 80; RESP 16; TEMP 36.4; O2SAT 100
[2022-09-25 08:45] VITALS: BP 127/69; PULSE 89; RESP 16; O2SAT 100
[2022-09-25] MEDS: fentaNYL CITRATE INJ (*CRX) 100 MCG/2 ML VIAL 25 MCG IV PUSH ×4 (08:46→09:03)
--- NOTE | 2022-09-25 08:55 | W.PM.PROC2 ---
Procedure Note - Detailed Date of Procedure 09/25/22 Pre-op Diagnosis desires sterilization, cervical dysplasia Post-op Diagnosis Same Procedure Performed Laparoscopic bilateral salpingectomy , LEEP procedure Surgeon Alice Cruz MD Anesthesia General Indications Unwanted fertility , cervical dysplasia Findings Normal pelvic anatomy, normal gross vulva, vagina, cervix. Description of Procedure The patient was taken the operating room. She was prepped and draped in the dorsal lithotomy position after induction of general anesthesia. A 5 mm skin incision was made in the left upper quadrant of the abdominal skin. A 5 mm trocar was inserted the intra-abdominal cavity under direct visualization of the scope. Pneumoperitoneum was achieved. A 5 mm trocar was inserted in the left lower quadrant identical fashion. A 5 mm infraumbilical trocar was inserted in identical fashion as well. The bilateral fallopian tubes were removed. This was done by using a LigaSure cautery. The mesosalpinx adjacent to the tube was cauterized transected with LigaSure. This was initiated in the area the ovary and in a stepwise fashion moved medially to the area of the cornu of the uterus. Once there the fallopian tube was cauterized and transected. This was done in identical fashion on each side. The fallopian tubes were taken out through the left lower quadrant trocar site. The pneumoperitoneum was reduced. The trocars removed. The skin was closed with subcuticular 4 Monocryl and covered with Dermabond. ?A coated speculum was placed in the vagina.? The cervix was injected at 3 and 9:00 a.m. with lidocaine.? A electrode loop was used to excise the central portion of the cervix in 1 motion.? This was from 9:00 to 3:00.? After excision of that tissue the cut surface was cauterized with ball cautery.? The Monsel solution was applied to the cut surfaces well.? The speculum was removed.? The patient tolerated the procedure well.? She was seeing cover stable condition.? She was taken to cover stable condition. Sponge lap and needle counts were correct x2. Estimated Blood Loss 5 Drains No Packing No Pathology Yes Complications No immediate complications Condition Stable Disposition PACU
[2022-09-25 09:00] VITALS: BP 118/71; PULSE 84; RESP 11; O2SAT 99
[2022-09-25 09:15] VITALS: BP 120/73; PULSE 77; RESP 16
[2022-09-25] MEDS: oxyCODONE HCL (*CRX) 5 MG TAB IR PO (09:33)
[2022-09-25 09:40] VITALS: BP 115/73; PULSE 71; RESP 14
== END 2022-09-25 09:58 | disposition home or self-care (01) ==
PROVIDERS: PCP Family Medicine; Visit Provider Obstetrics & Gynecology
PROC: (CPT 49320; principal; 2022-09-25 07:30)
PROC: 0UBC7ZZ Excision of Cervix, Via Natural or Artificial Opening (ICD-10-PCS; CPT 57522; 2022-09-25 07:30)
DX: Z30.2 Encounter for sterilization (principal); D06.0 Carcinoma in situ of endocervix; N83.8 Other noninflammatory disorders of ovary, fallopian tube and broad ligament; F32.A Depression, unspecified; I10 Essential (primary) hypertension; F17.210 Nicotine dependence, cigarettes, uncomplicated; F12.90 Cannabis use, unspecified, uncomplicated; E66.9 Obesity, unspecified; Z68.36 Body mass index [BMI] 36.0-36.9, adult
CPT/HCPCS: 57522; 58661; 88302; 88307; A9270; J0330; J1100; J1170; J1885; J2250; J2405; J2704; J2710; J3010; J7030; J7120